=== PATIENT | female | born 1950 | race Caucasian/White ===

== ENCOUNTER 2019-08-06 12:16 | Inpatient (IN) | payer MEDICARE, OTHER ==
[2019-08-06 12:29] VITALS: BMI 26.3
[2019-08-06] MEDS ORDERED: Dextrose 5% in Water 1,000 ML IV PRN (12:50)
[2019-08-06] MEDS ORDERED: Dextrose 50% Abboject 50 ML SYRINGE IVP PRN (12:50)
[2019-08-06] MEDS ORDERED: ALPRAZolam 0.25 MG TAB PO PRN (12:51)
[2019-08-06] MEDS ORDERED: Acetaminophen 325 MG TAB PO PRN (12:52)
[2019-08-06] MEDS ORDERED: Mag-Al Plus 1200 MG/1200 MG/120 MG/30 ML UDCUP PO PRN ×2 (12:53→12:54)
[2019-08-06] MEDS ORDERED: hydrALAZINE 20 MG/ML VIAL SLOW IVP PRN (12:53)
[2019-08-06] MEDS: Insulin Regular 300 UNITS/3 ML VIAL SC PRN ×3 (13:16→20:59)
[2019-08-06 13:30] LABS: #Basophils 0.1 thou/uL (0.0-0.2); #Eosinphils 0.2 thou/uL (0.0-0.7); #Lymphocytes 1.4 thou/uL (1.20-3.40); #Neutrophils 5.8 thou/uL (1.40-6.50); %Basophils 0.7 % (0.0-1.0); %Eosinophils 2.1 % (0.0-10.0); %Lymphocytes 16.3 % (21.0-51.0); %Monocytes 11.9 % (0.0-10.0); Hemoglobin 14.6 g/dL (12.0-16.0); Mean Corpuscular HGB CONC 34.8 g/dL (32.0-36.0); Mean Corpuscular Hemoglobin 31.1 pg (27.0-31.0); Mean Corpuscular Volume 89.3 fL (78.0-98.0); Mean Platelet Volume 8.7 fL (7.4-10.4); Platelet Count 212 thou/uL (130-400); RBC Distribution Width 11.8 % (11.5-14.5); Red Blood Cell (RBC) Count 4.68 mill/uL (4.20-5.40); White Blood Cell (WBC) Count 8.5 thou/uL (4.8-10.8)
[2019-08-06 13:49] LABS: Anion Gap 13 mmol/L (10-20); BUN (Urea Nitrogen) 12 mg/dL (9.8-20.1); Calc. Creatinine Clearance 83 mL/min (70-130); Calcium 9.5 mg/dL (7.8-10.44); Carbon Dioxide 24 mmol/L (23-31); Chloride 103 mmol/L (98-107); Estimated GFR-MDRD 82; Glucose 145 mg/dL (80-115); Potassium 3.5 mmol/L (3.5-5.1); Sodium 136 mmol/L (136-145)
[2019-08-06] MEDS ORDERED: Atorvastatin Calcium 40 MG TAB PO SCH (21:00)
[2019-08-07] MEDS ORDERED: CEFAZOLIN 2 GM in Premix Bag 1 BAG IVPB SCH (05:00)
[2019-08-07] MEDS ORDERED: Albumin 5% 500 ML ONE (06:31)
[2019-08-07] MEDS ORDERED: Bupivacaine HCl 0.5%/Epinephrine 1:200,000/PF 30 ml Vial ONE (06:31)
[2019-08-07] MEDS ORDERED: Dexamethasone 4 mg/ml Vial ONE (06:31)
[2019-08-07] MEDS ORDERED: Heparin 10,000 UNITS/1 ML VIAL 30,000 UNITS in Sodium Chloride 0.9% 1,000 ML FS SCH (06:45)
[2019-08-07] MEDS ORDERED: Midazolam HCl 5 mg/5 ml Vial ONE (06:50)
[2019-08-07] MEDS ORDERED: Fentanyl 250 MCG/5 ML VIAL ONE ×2 (06:50)
[2019-08-07] MEDS ORDERED: Midazolam HCl 2 mg/2 ml Vial ONE (07:22)
[2019-08-07] MEDS ORDERED: Insulin Regular 300 UNITS/3 ML VIAL ONE (08:27)
[2019-08-07] MEDS ORDERED: Phenylephrine HCL 10 MG/ML VIAL ONE (08:51)
[2019-08-07] MEDS ORDERED: Magnesium 2 GM/50 ML 2 GM in Premix Bag 1 BAG IVPB SCH (10:34)
[2019-08-07] MEDS ORDERED: Morphine 2 MG/ML SYRINGE SLOW IVP PRN (10:34)
[2019-08-07] MEDS ORDERED: Bisacodyl 10 MG SUPP PR PRN (10:34)
[2019-08-07] MEDS ORDERED: Hetastarch 6% 500 ML 500 ML IVPB PRN (10:34)
[2019-08-07] MEDS ORDERED: Phenylephrine 10 MG/NS 250 ML 250 ML IVPB PRN (10:34)
[2019-08-07] MEDS ORDERED: Ondansetron PF 4 MG/2 ML Vial IVP PRN (10:34)
[2019-08-07] MEDS ORDERED: Mag-Al 1200 mg/1200 mg/30 ML UDCUP PO PRN (10:34)
[2019-08-07] MEDS ORDERED: Nitroglycerin 50 MG/250 ML BOT 250 ML IVPB PRN (10:34)
[2019-08-07] MEDS ORDERED: Bisacodyl 5 MG TAB PO PRN (10:34)
[2019-08-07] MEDS ORDERED: Guaifenesin DM 100-10/5 ML UDCUP PO PRN (10:34)
[2019-08-07] MEDS ORDERED: D5 1/2 NS w/20 mEq KCL 1,000 ML IV SCH (10:34)
[2019-08-07] MEDS ORDERED: hydrALAZINE 20 MG/ML VIAL SLOW IVP PRN (10:34)
[2019-08-07] MEDS ORDERED: Acetaminophen 325 MG TAB PO PRN (10:34)
[2019-08-07] MEDS ORDERED: Fentanyl 100 MCG/2 ML VIAL SLOW IVP PRN (10:34)
[2019-08-07 10:57] LABS: Actual Bicarbonate (HCO3a) 21.8 mEq/L (22-28); Base Excess (BEa) -3.2 mEq/L (-2.0 to +3.0); CO2 Tension 38.9 mmHg (35.0-45.0); Calcium, Ionized 1.11 mmol/L (1.12-1.30); Carboxyhemoglobin (COHb) 0.8 gm% (0.0-3.0); Hemoglobin (Hb) 11.6 g/dL (12.0-16.0); O2 Tension (PaO2) 81.3 mmHg (> 80.0); Potassium - ABG Lab 3.71 mmol/L (3.70-5.30); pH, Arterial 7.37 (7.35-7.45)
[2019-08-07 10:58] LABS: Puncture Site LINE
[2019-08-07 10:59] LABS: ALV-art Gradient 226.575 (0-20)
[2019-08-07] MEDS ORDERED: HUMULIN R 100 UNITS in Sodium Chloride 0.9% 100 ML IVPB SCH (11:08)
[2019-08-07] MEDS ORDERED: Dextrose 50% Abboject 50 ML SYRINGE SLOW IVP PRN (11:08)
[2019-08-07] MEDS ORDERED: Dextrose 5% in Water 1,000 ML IV PRN (11:08)
[2019-08-07 11:12] LABS: INR-International Normal Ratio 1.3; PTT 33.2 SEC (22.9-36.1); Prothrombin Time 15.7 SEC (12.0-14.7)
[2019-08-07] MEDS: Insulin Regular 300 UNITS/3 ML VIAL SC PRN (11:12)
[2019-08-07 11:14] LABS: #Basophils 0.1 thou/uL (0.0-0.2); #Eosinphils 0.2 thou/uL (0.0-0.7); #Lymphocytes 1.5 thou/uL (1.20-3.40); #Monocytes 1.1 thou/uL (0.11-0.59); %Basophils 0.4 % (0.0-1.0); %Eosinophils 1.5 % (0.0-10.0); %Lymphocytes 9.3 % (21.0-51.0); %Monocytes 7.2 % (0.0-10.0); %Neutrophils 81.6 % (42.0-75.0); Hemoglobin 11.3 g/dL (12.0-16.0); Mean Corpuscular HGB CONC 34.6 g/dL (32.0-36.0); Mean Corpuscular Volume 89.5 fL (78.0-98.0); Mean Platelet Volume 8.6 fL (7.4-10.4); Platelet Count 152 thou/uL (130-400); RBC Distribution Width 11.8 % (11.5-14.5); Red Blood Cell (RBC) Count 3.63 mill/uL (4.20-5.40); White Blood Cell (WBC) Count 15.9 thou/uL (4.8-10.8)
[2019-08-07] MEDS: Ketorolac Tromethamine 30 MG/ML VIAL IVP SCH ×3 (11:17→23:30)
[2019-08-07 11:42] LABS: Anion Gap 11 mmol/L (10-20); BUN (Urea Nitrogen) 13 mg/dL (9.8-20.1); Calc. Creatinine Clearance 92 mL/min (70-130); Calcium 7.8 mg/dL (7.8-10.44); Carbon Dioxide 23 mmol/L (23-31); Chloride 111 mmol/L (98-107); Estimated GFR-MDRD Greater than 90; Glucose 121 mg/dL (80-115); Potassium 3.8 mmol/L (3.5-5.1); Sodium 141 mmol/L (136-145)
--- NOTE | 2019-08-07 11:53 | RAD ---
FRONTAL VIEW CHEST: Date: 08/07/19 INDICATION: Status post open heart surgery. FINDINGS: There is an endotracheal tube with tip between thoracic inlet and steve. Right central vein catheter from a subclavian approach terminates at the atrial level. There are mediastinal drainage catheters overlying the central chest. No discrete pneumothorax. There is left basilar density obscuring portio ns of left hemidiaphragm. Linear densities are seen at the mid to lower lung zones, and there are per ihilar interstitial opacities. Cardiomediastinal silhouette is accentuated by technique and rotation. IMPRESSION: 1. Status post cardiac surgery. 2. Left basilar density may relate to atelectasis. Small volume pleural fluid not excluded. 3. Continued imaging follow-up may be obtained for further evaluation. POS: [facility]
[2019-08-07] MEDS: CEFAZOLIN 2 GM in Premix Bag 1 BAG IVPB SCH ×2 (13:36→21:18)
[2019-08-07] MEDS ORDERED: Sodium Bicarb 50 MEQ/50 ML VIAL ONE (13:56)
[2019-08-07] MEDS ORDERED: Cardioplegic Soln 1,000 ML BAG ONE (13:56)
[2019-08-07] MEDS ORDERED: Protamine Sulfate 250 MG/25 ML VIAL ONE (13:56)
[2019-08-07] MEDS ORDERED: Lidocaine 2% PF 100 mg/5 ml Syringe ONE (13:56)
[2019-08-07] MEDS ORDERED: Potassium Chloride 60 MEQ/30 ML VIAL ONE (13:56)
[2019-08-07] MEDS ORDERED: Heparin 5,000 UNITS/ML VIAL ONE (13:56)
[2019-08-07] MEDS ORDERED: Vecuronium 10 MG VIAL ONE (13:56)
[2019-08-07] MEDS ORDERED: Papaverine 60 MG/2 ML VIAL ONE (13:56)
[2019-08-07] MEDS ORDERED: Magnesium 5 GM/10 ML VIAL ONE (13:56)
[2019-08-07] MEDS ORDERED: Thrombin 5000 UNITS/5 ML VIAL ONE (13:56)
[2019-08-07] MEDS ORDERED: Mannitol 12.5 GM/50 ML ONE (13:56)
[2019-08-07] MEDS ORDERED: PROPOFOL 200 MG/20 ML VIAL ONE (13:56)
[2019-08-07] MEDS ORDERED: Calcium Chloride 1 GM/10 ML Abboject SYRINGE ONE (13:56)
[2019-08-07] MEDS ORDERED: Aminocaproic Acid 5 GM/20 ML VIAL ONE (13:56)
[2019-08-07] MEDS ORDERED: Heparin 30,000 units/30 ml VIAL ONE (13:56)
[2019-08-07 14:59] LABS: Actual Bicarbonate (HCO3a) 20.7 mEq/L (22-28); Base Excess (BEa) -4.2 mEq/L (-2.0 to +3.0); CO2 Tension 37.3 mmHg (35.0-45.0); Calcium, Ionized 1.07 mmol/L (1.12-1.30); Carboxyhemoglobin (COHb) 0.8 gm% (0.0-3.0); Hemoglobin (Hb) 12.4 g/dL (12.0-16.0); O2 Tension (PaO2) 72.9 mmHg (> 80.0); Potassium - ABG Lab 3.86 mmol/L (3.70-5.30); pH, Arterial 7.36 (7.35-7.45)
[2019-08-07 15:00] LABS: ALV-art Gradient 94.375 (0-20); Puncture Site LINE
[2019-08-07] MEDS: Fentanyl 100 MCG/2 ML VIAL SLOW IVP PRN ×2 (15:15→17:13)
--- NOTE | 2019-08-07 15:16 | OP ---
DATE OF PROCEDURE: 08/07/2019 PREOPERATIVE DIAGNOSES: Coronary artery disease/diabetes mellitus/hypertension/hyperlipidemia. POSTOPERATIVE DIAGNOSES: Coronary artery disease/diabetes mellitus/hypertension/hyperlipidemia. PROCEDURES PERFORMED: 1. Coronary artery bypass grafting x3. a. Left internal mammary artery, 1.5 mm distal left anterior descending artery - good conduit with diffusely diseased target. b. Reverse saphenous vein to 2.0 mm obtuse marginal - good conduit with diffusely diseased target. c. Reverse saphenous vein to 2.0 mm posterior descending artery - good conduit. ARMATURE TESTER SURGEON: Juan Pablo Smith MD ANESTHESIA: General endotracheal, Dr. Adi Baker. PUMP TIME: 52 minutes. CROSS-CLAMP TIME: 32 minutes. LOW CORE TEMPERATURE: 34 degrees Celsius. PIECE WORK INSPECTOR: Dennise Nation. DRAINS: 24-[place] chest tubes x2. DRIPS: None. TRANSFUSIONS: None. DESCRIPTION OF PROCEDURE: After operative consent was obtained, the patient was brought into the operating room, placed in supine position on the operating room table. Appropriate central line and monitors were placed and general endotracheal anesthesia was induced. Chest, abdomen, and legs were prepped and draped in usual sterile fashion. Greater saphenous vein was harvested from the left lower extremity utilizing an endoscopic technique. The wound was irrigated and closed in layers. Median sternotomy was performed. Left internal mammary artery was harvested as a pedicle graft. The patient was systemically heparinized. Distal pedicle was divided and infused with papaverine. Thymic fat and pericardium were divided with electrocautery. Pericardial stay sutures were placed. Aortic and atrial cannulation was performed. After adequate heparinization, retrograde prime was performed. The patient was placed on cardiopulmonary bypass. Distal targets were marked. Aortic cross-clamp was applied and antegrade sanguineous cardioplegic arrest was obtained. 1 L of antegrade cold [place] cardioplegia was given. Topical cold solution was used. Reverse saphenous vein was anastomosed to the PDA in end-to-side fashion with running 7-0 Prolene suture. Anastomosis was tested and it was hemostatic. Reverse saphenous vein was anastomosed to OM in end-to-side fashion with running 7-0 Prolene suture. Anastomosis was tested and it was hemostatic. Mammary artery was brought through a window in the pericardium and anastomosed to the mid LAD in an end-to-side fashion with running 7-0 Prolene suture. On release of mammary clamps, there was good hooding of the anastomosis and good distal flow. Pedicle was secured with interrupted 6-0 Prolene suture. Cross-clamp was removed and partial occluding clamp placed. Saphenous veins were anastomosed to individual punch sites with running 6-0 Prolene suture. Partial occluding clamp was removed and graft was deaired. Anastomoses were inspected for hemostasis, which was good. The patient was warmed and weaned from cardiopulmonary bypass. After resumption of sinus rhythm, good hemodynamics, temperature greater than 36.5, bypass was discontinued. Transfusion was given. Protamine was administered. Decannulation was performed and pursestring suture was secured. After adequate hemostasis had been obtained, 24-Libyan chest tube was sent to replace the mediastinum. The sternum was treated with vancomycin paste. The sternum was closed with #7 wire, and the sternum was treated platelet rich plasma and wires were twisted. The wound was irrigated and treated with platelet poor plasma and closed in multiple layers. Needle, sponge, and instrument counts were all reported as correct at the end of the procedure. The patient tolerated the procedure well, was transferred to the intensive care in stable, but critical condition. Job ID: [id number]
--- NOTE | 2019-08-07 15:25 | EKG ---
Test Reason : POST CABG Blood Pressure : / mmHG Vent. Rate : 083 BPM Atrial Rate : 083 BPM P-R Int : 196 ms QRS Dur : 136 ms QT Int : 460 ms P-R-T Axes : 056 058 -02 degrees QTc Int : 540 ms Normal sinus rhythm Right bundle branch block T wave abnormality, consider inferior ischemia Abnormal ECG No previous ECGs available Confirmed by DR. Long LAWS ([id number]) on 08/07/2019 3:24:34 PM Referred By: Ashanti AGUIRRE Confirmed By:DR. Long LAWS
[2019-08-07 16:52] LABS: Hemoglobin 12.2 g/dL (12.0-16.0)
[2019-08-07] MEDS: Potassium Chloride 20 MEQ/100 ML PREMIX BAG IVPB PRN ×2 (16:56→23:21)
[2019-08-07 17:41] LABS: Potassium 3.8 mmol/L (3.5-5.1)
--- NOTE | 2019-08-07 19:59 | CON ---
DATE OF CONSULTATION: HISTORY OF PRESENT ILLNESS: Sheila Desai is a 68-year-old white female who currently is post CABG and intubated. History was obtained from review of the chart. She was admitted with an increasing chest pain and shortness of breath to [facility]. She underwent cardiac catheterization, which revealed 3-vessel coronary artery disease and an ejection fraction of 60%. Catheterization was performed by Dr. Martinez. Today, she underwent CABG x3 with HEARD to the LAD, saphenous vein graft to the obtuse marginal and the posterior descending. PAST MEDICAL HISTORY: Hypertension, hyperlipidemia, and diabetes. PAST SURGICAL HISTORY: . MEDICATIONS: 1. Aspirin 81 daily. 2. Toprol 100 XL daily. 3. Benazepril 40 mg daily. 4. Lipitor 40 daily. 5. Glimepiride 4 mg daily. 6. Amlodipine 10 mg daily. ALLERGIES: LASIX, UNKNOWN REACTION. SOCIAL HISTORY: She does not smoke. She occasionally smokes marijuana. She occasionally drinks. REVIEW OF SYSTEMS: Unobtainable with the patient being sedated and intubated. PHYSICAL EXAMINATION: VITAL SIGNS: Blood pressure 104/54, pulse of 73. HEENT: PERRL. NECK: Supple. CHEST: Clear. CARDIAC: S1 and S2 normal without any S3, S4, or murmurs. Carotid upstrokes normal without bruits. ABDOMEN: Normal bowel sounds without tenderness. EXTREMITIES: Revealed no clubbing, cyanosis, or edema. NEUROLOGIC: The patient is lethargic, but will open her eyes to her name and shake her head. SKIN: Warm and dry. LABORATORY DATA: Postoperative EKG reveals normal sinus rhythm with right bundle-branch block, nonspecific T-wave changes. Hemoglobin 11.3, hematocrit 32.5, white count 15,900, platelets 152,000. INR 1.3. PH 7.37, pCO2 of 38.9, PO2 of 81.3. Sodium 141, potassium 3.8, chloride 111, carbon dioxide 23, BUN 13, creatinine 0.64. IMPRESSION: 1. Status post coronary artery bypass grafting, hemodynamically stable at this time. 2. Hypertension. 3. Hyperlipidemia. 4. Diabetes. PLAN: The patient is currently being weaned from the ventilator. We will continue to follow with you. Job ID: [id number]
[2019-08-07] MEDS ORDERED: Atorvastatin Calcium 20 MG TAB PO SCH (21:00)
[2019-08-07] MEDS ORDERED: Famotidine/PF 20 mg/2ml Vial SLOW IVP SCH (21:00)
[2019-08-07] MEDS: HYDROcodone/Acetaminophen 5/325 mg Tablet PO PRN (21:17)
[2019-08-07 21:37] LABS: Potassium 3.8 mmol/L (3.5-5.1)
[2019-08-08] MEDS: HYDROcodone/Acetaminophen 5/325 mg Tablet PO PRN ×6 (01:16→23:54)
[2019-08-08] MEDS: Fentanyl 100 MCG/2 ML VIAL SLOW IVP PRN ×2 (01:28→16:12)
[2019-08-08 04:37] LABS: #Lymphocytes 1.3 thou/uL (1.20-3.40); #Monocytes 1.3 thou/uL (0.11-0.59); #Neutrophils 10.3 thou/uL (1.40-6.50); %Basophils 0.2 % (0.0-1.0); %Eosinophils 0.3 % (0.0-10.0); %Lymphocytes 9.8 % (21.0-51.0); %Monocytes 10.1 % (0.0-10.0); %Neutrophils 79.6 % (42.0-75.0); Hemoglobin 11.5 g/dL (12.0-16.0); Mean Corpuscular HGB CONC 34.2 g/dL (32.0-36.0); Mean Corpuscular Volume 90.5 fL (78.0-98.0); Platelet Count 143 thou/uL (130-400); Red Blood Cell (RBC) Count 3.72 mill/uL (4.20-5.40); White Blood Cell (WBC) Count 12.9 thou/uL (4.8-10.8)
[2019-08-08 04:58] LABS: Anion Gap 10 mmol/L (10-20); BUN (Urea Nitrogen) 10 mg/dL (9.8-20.1); Calc. Creatinine Clearance 97 mL/min (70-130); Calcium 8.7 mg/dL (7.8-10.44); Carbon Dioxide 24 mmol/L (23-31); Chloride 108 mmol/L (98-107); Estimated GFR-MDRD Greater than 90; Glucose 111 mg/dL (80-115); Potassium 4.1 mmol/L (3.5-5.1); Sodium 138 mmol/L (136-145)
[2019-08-08] MEDS: CEFAZOLIN 2 GM in Premix Bag 1 BAG IVPB SCH (06:13)
[2019-08-08] MEDS: Ketorolac Tromethamine 30 MG/ML VIAL IVP SCH ×4 (06:13→23:54)
[2019-08-08] MEDS: Atorvastatin Calcium 40 MG TAB PO SCH (08:19)
[2019-08-08] MEDS: Glimepiride 4 MG TAB PO SCH ×2 (08:20→16:15)
[2019-08-08] MEDS: Magnesium 2 GM/50 ML 2 GM in Premix Bag 1 BAG IVPB SCH (08:21)
--- NOTE | 2019-08-08 08:33 | RAD ---
SINGLE VIEW CHEST: Date: 08/08/19 COMPARISON: 08/07/19. HISTORY: Status post open heart surgery. FINDINGS: Single view of the chest shows an enlarged cardiomediastinal silhouette. The patient is status post s ternotomy. The endotracheal tube has been removed. The mediastinal drains and central venous catheter are unchanged in position. Atelectasis is seen in the mid left lung. IMPRESSION: Stable exam status post extubation. POS: [facility]
[2019-08-08] MEDS ORDERED: Aspirin 325 MG TAB PO SCH (09:00)
[2019-08-08] MEDS: Insulin Regular 300 UNITS/3 ML VIAL SC PRN ×3 (11:06→21:02)
[2019-08-08] MEDS ORDERED: Mag-Al 1200 mg/1200 mg/30 ML UDCUP PO PRN (12:38)
[2019-08-08] MEDS ORDERED: Zolpidem Tartrate 5 MG TAB PO PRN (12:38)
[2019-08-08] MEDS ORDERED: Nitroglycerin 0.4 MG TAB (25 Tab Bottle) SL PRN (12:38)
[2019-08-08] MEDS ORDERED: diphenhydrAMINE 25 MG CAP PO PRN (12:38)
[2019-08-08] MEDS ORDERED: Mineral Oil ENEMA PR PRN (12:38)
[2019-08-08] MEDS ORDERED: Bisacodyl 10 MG SUPP PR PRN (12:38)
[2019-08-08] MEDS ORDERED: Artificial Tears 18 DROP/0.9 ML EA EYE PRN (12:38)
[2019-08-08] MEDS ORDERED: Guaifenesin DM 100-10/5 ML UDCUP PO PRN (12:38)
[2019-08-08] MEDS ORDERED: Milk Of Magnesia 30 ML UDCUP PO PRN (12:38)
[2019-08-08] MEDS ORDERED: Warfarin Sodium 1 MG TAB PO SCH (17:00)
[2019-08-09] MEDS: Ketorolac Tromethamine 30 MG/ML VIAL IVP SCH ×3 (05:31→17:35)
[2019-08-09] MEDS: HYDROcodone/Acetaminophen 5/325 mg Tablet PO PRN ×3 (05:37→17:33)
[2019-08-09] MEDS: Glimepiride 4 MG TAB PO SCH ×2 (08:18→17:30)
[2019-08-09] MEDS: Amlodipine 10 MG TAB PO SCH (08:19)
[2019-08-09] MEDS: Aspirin 325 mg Enteric Coated Tablet PO SCH (08:19)
[2019-08-09] MEDS: Atorvastatin Calcium 40 MG TAB PO SCH (08:19)
[2019-08-09] MEDS: Magnesium 2 GM/50 ML 2 GM in Premix Bag 1 BAG IVPB SCH (08:22)
[2019-08-09] MEDS: Bisacodyl 5 MG TAB PO PRN (08:33)
[2019-08-09] MEDS: Insulin Regular 300 UNITS/3 ML VIAL SC PRN ×2 (11:42→17:40)
[2019-08-10] MEDS: Bisacodyl 5 MG TAB PO PRN (00:01)
[2019-08-10] MEDS: Ketorolac Tromethamine 30 MG/ML VIAL IVP SCH ×3 (05:19→11:50)
[2019-08-10] MEDS: Glimepiride 4 MG TAB PO SCH ×2 (07:17→16:18)
[2019-08-10] MEDS: Amlodipine 10 MG TAB PO SCH (08:34)
[2019-08-10] MEDS: Atorvastatin Calcium 40 MG TAB PO SCH (08:35)
[2019-08-10] MEDS: Aspirin 325 mg Enteric Coated Tablet PO SCH (08:35)
[2019-08-10] MEDS: Insulin Regular 300 UNITS/3 ML VIAL SC PRN (11:50)
[2019-08-10 13:17] VITALS: BP 150/73; TEMP 97.9
[2019-08-10] MEDS: HYDROcodone/Acetaminophen 5/325 mg Tablet PO PRN (17:09)
--- NOTE | 2019-08-11 03:32 | DIS ---
DATE OF ADMISSION: 08/06/2019 DATE OF DISCHARGE: 08/10/2019 DIAGNOSES: 1. Coronary artery disease. 2. Diabetes mellitus. 3. Dyslipidemia. 4. Hypertension. PROCEDURES: Coronary artery bypass grafting x3. 1. Left internal mammary artery to LAD. 2. Reverse saphenous vein to OM. 3. Reverse saphenous vein to PDA. DESCRIPTION OF HOSPITAL STAY: Ms. Desai was brought from the [facility] to [place] for coronary artery bypass grafting. She has done well postoperatively with no rhythm disturbances. She is being discharged to home in good condition. She will follow up with me in [address] Martinez in a month. DISCHARGE MEDICATIONS: Include; 1. Norvasc 10 mg daily. 2. Metoprolol succinate 100 mg daily. 3. Lipitor 40 mg daily. 4. Lasix 20 mg daily. 5. Glimepiride 4 mg b.i.d. 6. Aspirin 325 mg daily. 7. [place] 5/325 one to two q.6 hours p.r.n. pain. Job ID: [id number]
== END 2019-08-10 17:27 | disposition home or self-care (01) | DRG 236 ==
LOC: CCU 12:16 → 2NO 08-09 00:57
PROVIDERS: ADMIT Thoracic Surgery (Cardiothoracic Vascular Surgery); ATTEND Thoracic Surgery (Cardiothoracic Vascular Surgery)
PROC: 02100Z9 Bypass Coronary Artery, One Artery from Left Internal Mammary, Open Approach (ICD-10-PCS; principal; 2019-08-07)
PROC: 021109W Bypass Coronary Artery, Two Arteries from Aorta with Autologous Venous Tissue, Open Approach (ICD-10-PCS; 2019-08-07)
PROC: 06BQ0ZZ Excision of Left Saphenous Vein, Open Approach (ICD-10-PCS; 2019-08-07)
PROC: 5A1221Z Performance of Cardiac Output, Continuous (ICD-10-PCS; 2019-08-07)
DX: I25.10 Atherosclerotic heart disease of native coronary artery without angina pectoris (principal); E11.9 Type 2 diabetes mellitus without complications; I10 Essential (primary) hypertension; E78.5 Hyperlipidemia, unspecified; Z91.040 Latex allergy status; Z88.8 Allergy status to other drugs, medicaments and biological substances
CPT/HCPCS: 36415; 36416; 36430; 71045; 80048; 82805; 82947; 84132; 85014; 85018; 85025; 85610; 85730; 86850; 86900; 86901; 93005; 93010; 93798; 94002; J0670; J0690; J1100; J1642; J1644; J1815; J1885; J2001; J2150; J2250; J2270; J2370; J2405; J2440; J2704; J2720; J3010; J3370; J3475; J3480; J3490; J7050; P9045; S0017; S0028

== ENCOUNTER 2020-01-15 10:12 | Emergency (ER) | payer MEDICARE, OTHER ==
--- NOTE | 2020-01-15 10:46 | CT ---
Exam: Head CT without contrast HISTORY: Blurred vision x1 month ago. Hypertension. Altered mental status. COMPARISON: none FINDINGS: Hemorrhage: No intraparenchymal hemorrhage or extra-axial hematoma. Brain parenchyma: Cortical barba-white matter differentiation is preserved. No mass effect or midline shift. Basilar cisterns are patent. Ventricular system: Ventricles and sulci are patent and symmetric. Calvarium: Intact. Sinuses and mastoid air cells: Adequate aeration. IMPRESSION: No acute intracranial process.
--- NOTE | 2020-01-15 10:52 | RAD ---
Exam: Chest one view HISTORY:Chest pain Comparison: 08/08/2019 FINDINGS: Cardiac silhouette:There is cardiomegaly. Stable sternotomy wires. Aorta: Atherosclerosis of the aortic knob. Elongation of the descending thoracic aorta. Pulmonary vessels: Normal Costophrenic angles: Clear LUNGS: No masses or consolidation. There is scarring in the left midlung. Pneumothorax: None Osseous abnormalities: None IMPRESSION: No acute cardiopulmonary process. Atherosclerosis.
[2020-01-15 10:59] LABS: #Basophils 0.1 thou/uL (0.0-0.2); #Eosinphils 0.2 thou/uL (0.0-0.7); #Lymphocytes 1.2 thou/uL (1.20-3.40); #Monocytes 0.6 thou/uL (0.11-0.59); #Neutrophils 4.2 thou/uL (1.40-6.50); %Basophils 1.4 % (0.0-1.0); %Lymphocytes 18.7 % (21.0-51.0); %Neutrophils 66.9 % (42.0-75.0); Hemoglobin 14.6 g/dL (12.0-16.0); Mean Corpuscular HGB CONC 33.8 g/dL (32.0-36.0); Mean Corpuscular Hemoglobin 29.8 pg (27.0-31.0); Mean Corpuscular Volume 88.1 fL (78.0-98.0); Platelet Count 203 thou/uL (130-400); White Blood Cell (WBC) Count 6.3 thou/uL (4.8-10.8)
[2020-01-15] MEDS ORDERED: Diltiazem 125 MG/25 ML ONE (11:08)
[2020-01-15 11:23] LABS: ALT (SGPT) 23 U/L (8-55); AST (SGOT) 19 U/L (5-34); Albumin 4.4 g/dL (3.4-4.8); Alkaline Phosphatase 115 U/L (40-110); Anion Gap 12 mmol/L (10-20); BUN (Urea Nitrogen) 14 mg/dL (9.8-20.1); Bilirubin, Total 0.5 mg/dL (0.2-1.2); CK (CPK) 80 U/L (29-168); Calc. Creatinine Clearance 0 mL/min (70-130); Calcium 9.2 mg/dL (7.8-10.44); Carbon Dioxide 27 mmol/L (23-31); Chloride 104 mmol/L (98-107); Estimated GFR-MDRD 73; Globulin 3.2 g/dL (2.4-3.5); Glucose 198 mg/dL (80-115); Lipase 16 U/L (8-78); Potassium 3.9 mmol/L (3.5-5.1); Protein, Total 7.6 g/dL (6.0-8.3); Sodium 139 mmol/L (136-145)
[2020-01-15 11:30] LABS: Bilirubin Negative (Negative); Blood, Urine Negative (Negative); Clarity Clear (Clear); Glucose, Urine (Dipstick) 300 mg/dL (Negative); Leukocyte 75 Leu/uL (Negative); Nitrite Negative (Negative); Protein, Urine (Dipstick) 10 mg/dL (Neg-Trace); RBC/HPF 0-3 HPF (0-3); Squamous Epithelial 0-3 HPF (0-3); Urobilinogen Normal mg/dL (Less than 2); WBC/HPF 0-3 HPF (0-3)
[2020-01-15 11:31] LABS: Bacteria/HPF 1+ HPF (None Seen)
== END 2020-01-15 12:15 | disposition home or self-care (01) ==
LOC: ERS 10:12
DX: I16.0 Hypertensive urgency (principal); I10 Essential (primary) hypertension; E78.00 Pure hypercholesterolemia, unspecified; E11.9 Type 2 diabetes mellitus without complications; Z79.899 Other long term (current) drug therapy; Z79.82 Long term (current) use of aspirin
CPT/HCPCS: 36415; 70450; 71045; 80053; 81003; 81015; 82550; 83690; 83880; 84484; 85025; 87086; 93005; 96361; 96374

== ENCOUNTER 2022-07-18 00:19 | Inpatient (IN) | payer MEDICARE ==
[2022-07-18] MEDS ORDERED: Aspirin Chewable 81 MG TAB ONE (01:16)
[2022-07-18] MEDS ORDERED: cloNIDine 0.1 MG TAB ONE (01:16)
[2022-07-18] MEDS ORDERED: Cefepime 2 GM VIAL ONE (01:17)
[2022-07-18 01:19] LABS: Hemoglobin 14.8 g/dL (12.0-16.0); Mean Corpuscular HGB CONC 33.5 g/dL (32.0-36.0); Mean Corpuscular Hemoglobin 30.9 pg (27.0-31.0); Mean Corpuscular Volume 92.4 fL (78.0-98.0); Mean Platelet Volume 9.8 fL (7.4-10.4); Platelet Count 191 thou/uL (130-400); RBC Distribution Width 12.3 % (11.5-14.5); Red Blood Cell (RBC) Count 4.79 mill/uL (4.20-5.40); White Blood Cell (WBC) Count 12.1 thou/uL (4.8-10.8)
[2022-07-18 01:38] LABS: ALT (SGPT) 15 U/L (8-55); AST (SGOT) 30 U/L (5-34); Albumin 3.4 g/dL (3.4-4.8); Alkaline Phosphatase 89 U/L (40-110); Anion Gap 23 mmol/L (10-20); BUN (Urea Nitrogen) 48 mg/dL (9.8-20.1); Bilirubin, Total 0.8 mg/dL (0.2-1.2); Calc. Creatinine Clearance 0 mL/min (70-130); Calcium 9.5 mg/dL (7.8-10.44); Carbon Dioxide 18 mmol/L (23-31); Chloride 91 mmol/L (98-107); Estimated GFR 16; Globulin 3.7 g/dL (2.4-3.5); Glucose 313 mg/dL (80-115); Lipase 5 U/L (8-78); Magnesium 1.8 mg/dL (1.6-2.6); Potassium 3.4 mmol/L (3.5-5.1); Protein, Total 7.1 g/dL (5.8-8.1); Sodium 129 mmol/L (136-145)
[2022-07-18] MEDS ORDERED: Piperacillin/Tazobactam 3.375 GM VIAL ONE (01:40)
[2022-07-18 01:45] LABS: Band 25 % (5-11); Lymphocytes 3 % (21-51); MDiff Complete? YES; Metamyelocyte 14 % (0-0); Monocytes 5 % (0-10); Myelocyte 11 % (0-0); Neutrophil 42 % (42-75); Platelet Morphology Comment Appears Adequate; RBC Morphology Normal
[2022-07-18] MEDS ORDERED: Vancomycin 1 GM/200 ML BAG ONE (03:21)
[2022-07-18] MEDS ORDERED: Heparin 25,000 units/D5W 500 ML ONE (03:43)
[2022-07-18] MEDS ORDERED: Heparin 10,000 UNITS/ 10 ML VIAL ONE ×2 (03:43→03:50)
[2022-07-18 03:46] LABS: INR-International Normal Ratio 1.5; PTT 49.7 sec (22.9-36.1)
[2022-07-18 04:06] LABS: Actual Bicarbonate (HCO3a) 15.8 mEq/L (22-28); Analyzer IN Cardio ER; Base Excess (BEa) -10.6 mEq/L (-2.0 to +3.0); CO2 Tension 36.5 mmHg (35.0-45.0); Calcium, Ionized (arterial) 1.08 mmol/L (1.12-1.30); Carboxyhemoglobin (COHb) 0.3 gm% (0.0-3.0); Hemoglobin (Hb) 13.7 g/dL (12.0-16.0); Potassium - ABG Lab 3.61 mmol/L (3.70-5.30)
[2022-07-18 04:07] LABS: ALV-art Gradient 109.535 mmHg (0-20); Puncture Site RRA; pH, Arterial 7.25 (7.35-7.45)
[2022-07-18] MEDS ORDERED: Acetaminophen 325 MG TAB PO PRN (04:15)
[2022-07-18] MEDS ORDERED: Ondansetron PF 4 MG/2 ML Vial IVP PRN (04:15)
[2022-07-18] MEDS ORDERED: Heparin 10,000 UNITS/ 10 ML VIAL SLOW IVP SCH (04:15)
[2022-07-18] MEDS ORDERED: Ondansetron ODT 4 MG TAB SL PRN (04:15)
[2022-07-18] MEDS ORDERED: Heparin 25,000 units/D5W 500 ML IV SCH (04:15)
[2022-07-18] MEDS ORDERED: Dextrose 50% Abboject 50 ML SYRINGE SLOW IVP PRN (04:29)
[2022-07-18] MEDS ORDERED: Acetaminophen 650 MG Suppository PR PRN (04:29)
[2022-07-18] MEDS ORDERED: Dextrose 5% in Water 1,000 ML IV PRN (04:29)
[2022-07-18 04:59] LABS: Troponin I 0.012 ng/mL (< 0.028)
[2022-07-18 05:44] LABS: SARS-CoV-2 NAA Rapid Test Not Detected (NotDetected)
[2022-07-18 06:52] LABS: Bilirubin Negative (Negative); Blood, Urine 3+ (Negative); Clarity Extra Turbid (Clear); Glucose, Urine (Dipstick) 50 mg/dL (Negative); Ketone, Urine Trace mg/dL (Negative); Leukocyte 500 Leu/uL (Negative); Nitrite Negative (Negative); Protein, Urine (Dipstick) 100 mg/dL (Neg-Trace); Specific Gravity, Urine 1.026 (1.002-1.036); Transitional Epithelial 0-3 HPF (None Seen); Urobilinogen Normal mg/dL (Less than 2); WBC/HPF Greater than 50 HPF (0-3); pH, Urine 5.5 (5.0-9.0)
[2022-07-18 06:53] LABS: Bacteria/HPF 1+ HPF (None Seen)
[2022-07-18 06:54] LABS: Urine Culture Reflex No No
[2022-07-18 07:58] LABS: Anion Gap 21 mmol/L (10-20); BUN (Urea Nitrogen) 47 mg/dL (9.8-20.1); Calc. Creatinine Clearance 22 mL/min (70-130); Calcium 8.1 mg/dL (7.8-10.44); Carbon Dioxide 14 mmol/L (23-31); Chloride 100 mmol/L (98-107); Estimated GFR 19; Glucose 270 mg/dL (80-115); Magnesium 1.7 mg/dL (1.6-2.6); Potassium 3.7 mmol/L (3.5-5.1); Sodium 131 mmol/L (136-145)
[2022-07-18 08:09] LABS: Band 32 % (5-11); Eosinophils 2 % (0-10); Lymphocytes 3 % (21-51); MDiff Complete? YES; Mean Corpuscular HGB CONC 32.7 g/dL (32.0-36.0); Mean Corpuscular Hemoglobin 30.4 pg (27.0-31.0); Mean Platelet Volume 9.7 fL (7.4-10.4); Metamyelocyte 8 % (0-0); Monocytes 2 % (0-10); Myelocyte 13 % (0-0); Neutrophil 40 % (42-75); Platelet Count 149 thou/uL (130-400); RBC Distribution Width 12.2 % (11.5-14.5); Red Blood Cell (RBC) Count 4.58 mill/uL (4.20-5.40); Toxic Granulation SLIGHT; White Blood Cell (WBC) Count 4.5 thou/uL (4.8-10.8)
[2022-07-18 08:23] LABS: Lactic Acid 3.6 mmol/L (0.5-2.2)
[2022-07-18 08:31] LABS: Troponin I 0.015 ng/mL (< 0.028)
[2022-07-18] MEDS ORDERED: Meropenem 1 GM in Sodium Chloride 0.9% 100 ML IVPB SCH (09:00)
[2022-07-18] MEDS ORDERED: Sodium Chloride 0.9% 1,000 ML IV SCH (09:00)
[2022-07-18] MEDS: NOREPINEPHRINE 8 MG/250 ML-D5W 250 ML IVPB SCH ×2 (09:49→18:08)
[2022-07-18] MEDS ORDERED: Pantoprazole 40 MG VIAL IVP SCH (10:15)
[2022-07-18 11:31] LABS: PTT 183.9 sec (22.9-36.1)
[2022-07-18] MEDS: Lactated Ringer's 1,000 ML IV SCH (12:30)
[2022-07-18] MEDS ORDERED: Lactated Ringer's 1,000 ML IV SCH (12:30)
[2022-07-18] MEDS ORDERED: Vancomycin 1 GM in Sodium Chloride 0.9% 100 ML IVPB SCH (12:45)
[2022-07-18] MEDS ORDERED: VANCOMYCIN 1.25 GM/250 ML BAG 1.25 GM in Premix Bag 1 BAG IVPB SCH (13:00)
[2022-07-18 13:56] LABS: Actual Bicarbonate (HCO3v) 16 mEq/L (22-28); Calcium, Ionized (venous) 1.01 mmol/L (1.16-1.32); Chloride (VBG) 99 mmol/L (98-106); Potassium (VBG) 3.66 mmol/L (3.70-5.30); Sodium 126.3 mmol/L (133-146)
[2022-07-18] MEDS: Hydrocortisone Sod Succ/PF 100 mg/2 ml Vial IVP SCH ×2 (14:44→19:38)
[2022-07-18] MEDS: traMADol HCl 50 MG TAB PO PRN (16:20)
[2022-07-18 16:39] LABS: Anion Gap 19 mmol/L (10-20); BUN (Urea Nitrogen) 54 mg/dL (9.8-20.1); Calc. Creatinine Clearance 22 mL/min (70-130); Calcium 7.4 mg/dL (7.8-10.44); Carbon Dioxide 13 mmol/L (23-31); Chloride 100 mmol/L (98-107); Estimated GFR 19; Glucose 259 mg/dL (80-115); Potassium 3.9 mmol/L (3.5-5.1); Sodium 128 mmol/L (136-145)
[2022-07-18] MEDS: HumaLOG 300 UNITS/3 ML VIAL SC PRN ×2 (17:01→22:11)
[2022-07-18] MEDS: Meropenem 500 MG in Sodium Chloride 0.9% 100 ML IVPB SCH (17:11)
[2022-07-18] MEDS: Morphine 2 MG/ML VIAL SLOW IVP PRN ×2 (17:18→22:10)
[2022-07-18] MEDS ORDERED: Magnesium 2 GM/50 ML(in water) 2 GM in Premix Bag 1 BAG IVPB SCH (17:30)
[2022-07-18 18:42] LABS: Lactic Acid 2.4 mmol/L (0.5-2.2)
[2022-07-18] MEDS ORDERED: Sodium Bicarb 50 MEQ/50 ML VIAL IVP SCH (19:15)
[2022-07-18] MEDS ORDERED: Sodium Bicarb 50 MEQ/50 ML Abboject 8.4% SYRINGE IVP SCH (19:30)
[2022-07-19] MEDS: Lactated Ringer's 1,000 ML IV SCH ×3 (01:48→12:50)
[2022-07-19] MEDS: Hydrocortisone Sod Succ/PF 100 mg/2 ml Vial IVP SCH ×4 (01:49→19:36)
[2022-07-19] MEDS: Meropenem 500 MG in Sodium Chloride 0.9% 100 ML IVPB SCH ×2 (04:15→16:36)
[2022-07-19] MEDS: NOREPINEPHRINE 8 MG/250 ML-D5W 250 ML IVPB SCH (04:16)
[2022-07-19 05:27] LABS: Lactic Acid 2.1 mmol/L (0.5-2.2)
[2022-07-19 05:45] LABS: CK (CPK) 2073 U/L (29-168); Phosphorus 4.9 mg/dL (2.3-4.7)
[2022-07-19] MEDS: HumaLOG 300 UNITS/3 ML VIAL SC PRN ×4 (05:51→21:35)
[2022-07-19 05:53] LABS: ALT (SGPT) 73 U/L (8-55); AST (SGOT) 122 U/L (5-34); Alkaline Phosphatase 80 U/L (40-110); Anion Gap 19 mmol/L (10-20); BUN (Urea Nitrogen) 59 mg/dL (9.8-20.1); Bilirubin, Total 1.6 mg/dL (0.2-1.2); Calc. Creatinine Clearance 22 mL/min (70-130); Calcium 7.2 mg/dL (7.8-10.44); Carbon Dioxide 16 mmol/L (23-31); Chloride 100 mmol/L (98-107); Estimated GFR 19; Globulin 2.7 g/dL (2.4-3.5); Glucose 224 mg/dL (80-115); Magnesium 2.2 mg/dL (1.6-2.6); Potassium 3.8 mmol/L (3.5-5.1); Protein, Total 4.7 g/dL (5.8-8.1); Sodium 131 mmol/L (136-145)
[2022-07-19 06:05] LABS: Band 12 % (5-11); Eosinophils 1 % (0-10); Hemoglobin 11.6 g/dL (12.0-16.0); Hypochromia SLIGHT = 6-15 cells (100X) (0-5/hpf); Lymphocytes 15 % (21-51); MDiff Complete? YES; Mean Corpuscular HGB CONC 33.3 g/dL (32.0-36.0); Mean Corpuscular Hemoglobin 30.6 pg (27.0-31.0); Mean Corpuscular Volume 91.8 fL (78.0-98.0); Mean Platelet Volume 10.6 fL (7.4-10.4); Monocytes 10 % (0-10); Neutrophil 62 % (42-75); Platelet Count 89 thou/uL (130-400); Platelet Morphology Comment Appears Decreased; RBC Distribution Width 12.1 % (11.5-14.5); Red Blood Cell (RBC) Count 3.78 mill/uL (4.20-5.40); White Blood Cell (WBC) Count 6.6 thou/uL (4.8-10.8)
[2022-07-19] MEDS: Pantoprazole 40 MG VIAL IVP SCH (08:48)
[2022-07-19] MEDS ORDERED: Lactated Ringer's 500 ML IV SCH (13:00)
[2022-07-19 13:11] LABS: Actual Bicarbonate (HCO3a) 18.5 mEq/L (22-28); Base Excess (BEa) -5.3 mEq/L (-2.0 to +3.0); CO2 Tension 31.5 mmHg (35.0-45.0); Calcium, Ionized (arterial) 1.01 mmol/L (1.12-1.30); Potassium - ABG Lab 3.58 mmol/L (3.70-5.30); pH, Arterial 7.39 (7.35-7.45)
[2022-07-19 13:12] LABS: O2 Tension (PaO2), arterial 55.4 mmHg (> 80.0); Puncture Site Arterial Line
[2022-07-19 13:18] LABS: Vancomycin, Random 13.3 ug/mL (See Comment)
[2022-07-19] MEDS ORDERED: Vancomycin HCl 750 MG in Sodium Chloride 0.9% 250 ML 250 ML IVPB SCH (15:00)
[2022-07-19] MEDS ORDERED: Heparin 5,000 UNITS/ML VIAL SC SCH (21:00)
[2022-07-19] MEDS: Insulin Glargine 30 UNITS/0.3 ML VIAL SC SCH (21:34)
[2022-07-20] MEDS: Morphine 2 MG/ML VIAL SLOW IVP PRN (00:30)
[2022-07-20] MEDS: Hydrocortisone Sod Succ/PF 100 mg/2 ml Vial IVP SCH ×4 (01:39→20:57)
[2022-07-20 04:38] LABS: ALT (SGPT) 67 U/L (8-55); AST (SGOT) 88 U/L (5-34); Albumin 2.1 g/dL (3.4-4.8); Alkaline Phosphatase 128 U/L (40-110); Anion Gap 18 mmol/L (10-20); BUN (Urea Nitrogen) 63 mg/dL (9.8-20.1); Bilirubin, Total 2.1 mg/dL (0.2-1.2); CK (CPK) 2019 U/L (29-168); Calc. Creatinine Clearance 26 mL/min (70-130); Calcium 7.5 mg/dL (7.8-10.44); Carbon Dioxide 16 mmol/L (23-31); Chloride 104 mmol/L (98-107); Estimated GFR 23; Globulin 2.6 g/dL (2.4-3.5); Glucose 166 mg/dL (80-115); Potassium 3.7 mmol/L (3.5-5.1); Protein, Total 4.7 g/dL (5.8-8.1); Sodium 134 mmol/L (136-145)
[2022-07-20 04:52] LABS: Band 34 % (5-11); Eosinophils 2 % (0-10); Hemoglobin 11.3 g/dL (12.0-16.0); Lymphocytes 3 % (21-51); MDiff Complete? YES; Mean Corpuscular HGB CONC 33.6 g/dL (32.0-36.0); Mean Corpuscular Hemoglobin 31.3 pg (27.0-31.0); Mean Corpuscular Volume 93.2 fL (78.0-98.0); Mean Platelet Volume 10.2 fL (7.4-10.4); Metamyelocyte 9 % (0-0); Monocytes 4 % (0-10); Neutrophil 48 % (42-75); Nucleated RBC 2 % (0); Platelet Count 57 thou/uL (130-400); Platelet Morphology Comment Appears Decreased; RBC Distribution Width 12.2 % (11.5-14.5); RBC Morphology Normal; White Blood Cell (WBC) Count 11.2 thou/uL (4.8-10.8)
[2022-07-20] MEDS: Lactated Ringer's 1,000 ML IV SCH (05:21)
[2022-07-20] MEDS: Meropenem 500 MG in Sodium Chloride 0.9% 100 ML IVPB SCH (05:34)
[2022-07-20] MEDS ORDERED: cefTRIAXone\\ROCEPHIN 2 GM in Sodium Chloride 0.9% 100 ML IVPB SCH (08:00)
[2022-07-20] MEDS: Pantoprazole 40 MG VIAL IVP SCH (09:07)
[2022-07-20] MEDS: Furosemide 40 MG/4 ML VIAL SLOW IVP SCH (09:18)
[2022-07-20] MEDS: HumaLOG 300 UNITS/3 ML VIAL SC PRN (17:04)
[2022-07-20] MEDS: Insulin Glargine 30 UNITS/0.3 ML VIAL SC SCH (20:57)
[2022-07-20] MEDS: Clindamycin/D5W 900 MG in Premix Bag 1 BAG IVPB SCH (21:31)
[2022-07-20] MEDS: NOREPINEPHRINE 8 MG/250 ML-D5W 250 ML IVPB SCH (22:00)
[2022-07-20 22:29] LABS: Actual Bicarbonate (HCO3a) 15.3 mEq/L (22-28); Analyzer IN Cardio ER; Base Excess (BEa) -8.1 mEq/L (-2.0 to +3.0); Calcium, Ionized (arterial) 1.07 mmol/L (1.12-1.30); Carboxyhemoglobin (COHb) 0.3 gm% (0.0-3.0); Hemoglobin (Hb) 11.6 g/dL (12.0-16.0); O2 Tension (PaO2), arterial 60.7 mmHg (> 80.0); Potassium - ABG Lab 3.52 mmol/L (3.70-5.30)
[2022-07-20 22:33] LABS: ALV-art Gradient 299.575 mmHg (0-20); CO2 Tension 25.5 mmHg (35.0-45.0); Puncture Site Arterial Line
[2022-07-20 22:46] LABS: Hemoglobin 10.9 g/dL (12.0-16.0); Mean Corpuscular HGB CONC 33.2 g/dL (32.0-36.0); Mean Corpuscular Hemoglobin 30.9 pg (27.0-31.0); Mean Platelet Volume 10.6 fL (7.4-10.4); Platelet Count 49 thou/uL (130-400); RBC Distribution Width 12.5 % (11.5-14.5); Red Blood Cell (RBC) Count 3.53 mill/uL (4.20-5.40); White Blood Cell (WBC) Count 23.7 thou/uL (4.8-10.8)
[2022-07-20] MEDS: Penicillin G Potassium 4 MILL.UNITS in Sodium Chloride 0.9% 100 ML IVPB SCH (22:54)
[2022-07-20 22:57] LABS: Band 29 % (5-11); Lymphocytes 1 % (21-51); MDiff Complete? YES; Monocytes 22 % (0-10); Neutrophil 48 % (42-75); Platelet Morphology Comment Appears Decreased; RBC Morphology Normal
[2022-07-20 23:05] LABS: ALT (SGPT) 54 U/L (8-55); AST (SGOT) 63 U/L (5-34); Albumin 2.1 g/dL (3.4-4.8); Alkaline Phosphatase 172 U/L (40-110); Anion Gap 21 mmol/L (10-20); BUN (Urea Nitrogen) 78 mg/dL (9.8-20.1); Bilirubin, Total 2.5 mg/dL (0.2-1.2); Calc. Creatinine Clearance 27 mL/min (70-130); Carbon Dioxide 15 mmol/L (23-31); Chloride 103 mmol/L (98-107); Estimated GFR 23; Globulin 2.8 g/dL (2.4-3.5); Glucose 207 mg/dL (80-115); Potassium 3.3 mmol/L (3.5-5.1); Protein, Total 4.9 g/dL (5.8-8.1); Sodium 136 mmol/L (136-145)
[2022-07-20] MEDS ORDERED: Potassium Chloride 10 MEQ TAB PO SCH (23:30)
[2022-07-20] MEDS ORDERED: Potassium Chloride 10 MEQ in Premix Bag 1 BAG IVPB SCH ×2 (23:59)
[2022-07-21] MEDS: Hydrocortisone Sod Succ/PF 100 mg/2 ml Vial IVP SCH ×4 (01:38→20:37)
[2022-07-21] MEDS: NOREPINEPHRINE 8 MG/250 ML-D5W 250 ML IVPB SCH ×5 (02:45→23:20)
[2022-07-21 04:59] LABS: ALT (SGPT) 55 U/L (8-55); AST (SGOT) 66 U/L (5-34); Alkaline Phosphatase 326 U/L (40-110); Anion Gap 22 mmol/L (10-20); BUN (Urea Nitrogen) 80 mg/dL (9.8-20.1); Bilirubin, Total 2.8 mg/dL (0.2-1.2); Calc. Creatinine Clearance 26 mL/min (70-130); Calcium 7.8 mg/dL (7.8-10.44); Carbon Dioxide 14 mmol/L (23-31); Chloride 102 mmol/L (98-107); Estimated GFR 22; Globulin 2.8 g/dL (2.4-3.5); Glucose 285 mg/dL (80-115); Magnesium 2.4 mg/dL (1.6-2.6); Potassium 3.4 mmol/L (3.5-5.1); Protein, Total 4.8 g/dL (5.8-8.1); Sodium 135 mmol/L (136-145)
[2022-07-21 05:27] LABS: Band 44 % (5-11); Hemoglobin 10.6 g/dL (12.0-16.0); Hypochromia SLIGHT = 6-15 cells (100X) (0-5/hpf); Lymphocytes 9 % (21-51); MDiff Complete? YES; Mean Corpuscular HGB CONC 32.7 g/dL (32.0-36.0); Mean Corpuscular Hemoglobin 30.5 pg (27.0-31.0); Mean Corpuscular Volume 93.2 fL (78.0-98.0); Monocytes 3 % (0-10); Neutrophil 44 % (42-75); Platelet Count 51 thou/uL (130-400); Platelet Morphology Comment Appears Decreased; RBC Distribution Width 12.8 % (11.5-14.5); Red Blood Cell (RBC) Count 3.47 mill/uL (4.20-5.40); White Blood Cell (WBC) Count 33.7 thou/uL (4.8-10.8)
[2022-07-21] MEDS: Clindamycin/D5W 900 MG in Premix Bag 1 BAG IVPB SCH ×3 (05:56→21:32)
[2022-07-21] MEDS: HumaLOG 300 UNITS/3 ML VIAL SC PRN ×2 (06:02→12:00)
[2022-07-21] MEDS: Penicillin G Potassium 4 MILL.UNITS in Sodium Chloride 0.9% 100 ML IVPB SCH ×3 (06:22→22:50)
[2022-07-21] MEDS: Furosemide 40 MG/4 ML VIAL SLOW IVP SCH (08:35)
[2022-07-21] MEDS: Pantoprazole 40 MG VIAL IVP SCH (08:37)
[2022-07-21] MEDS: Sodium Bicarbonate 140 MEQ in Dextrose 5% in Water 1,000 ML IV SCH (11:53)
[2022-07-21] MEDS: Morphine 2 MG/ML VIAL SLOW IVP PRN (13:06)
[2022-07-21] MEDS ORDERED: Dextrose 5% in Water 1,000 ML IV PRN (13:57)
[2022-07-21] MEDS: NPH, Human Insulin Isophane 300 UNIT/3 ML VIAL SC SCH (14:26)
[2022-07-21 17:24] LABS: Glucose 357 mg/dL (80-115)
[2022-07-21] MEDS: Potassium Chloride 20 MEQ in Premix Bag 1 BAG IVPB SCH ×2 (17:42→20:35)
[2022-07-21] MEDS: Insulin Regular 300 UNITS/3 ML VIAL SC PRN ×2 (18:06→21:33)
[2022-07-21 21:11] LABS: Glucose 364 mg/dL (80-115)
[2022-07-21] MEDS ORDERED: Albumin 25% 100 ML ONE (22:43)
[2022-07-21] MEDS ORDERED: EPINEPHrine 4 MG in Dextrose 5% in Water 250 ML IV SCH (23:00)
[2022-07-21] MEDS ORDERED: Albumin 25% 25 GM/100 ML BOT IVPB SCH (23:00)
[2022-07-22 01:23] LABS: Glucose 376 mg/dL (80-115)
[2022-07-22] MEDS: Hydrocortisone Sod Succ/PF 100 mg/2 ml Vial IVP SCH ×3 (01:41→20:35)
[2022-07-22] MEDS: Sodium Bicarbonate 140 MEQ in Dextrose 5% in Water 1,000 ML IV SCH ×2 (01:41→15:22)
[2022-07-22] MEDS: NPH, Human Insulin Isophane 300 UNIT/3 ML VIAL SC SCH ×3 (01:42→20:32)
[2022-07-22] MEDS: Insulin Regular 300 UNITS/3 ML VIAL SC PRN ×4 (01:43→16:08)
[2022-07-22] MEDS: NOREPINEPHRINE 8 MG/250 ML-D5W 250 ML IVPB SCH ×2 (03:45→08:24)
[2022-07-22] MEDS: Penicillin G Potassium 4 MILL.UNITS in Sodium Chloride 0.9% 100 ML IVPB SCH ×3 (05:07→22:50)
[2022-07-22 05:09] LABS: ALT (SGPT) 39 U/L (8-55); AST (SGOT) 42 U/L (5-34); Albumin 2.2 g/dL (3.4-4.8); Alkaline Phosphatase 213 U/L (40-110); Anion Gap 18 mmol/L (10-20); BUN (Urea Nitrogen) 88 mg/dL (9.8-20.1); Bilirubin, Total 3.7 mg/dL (0.2-1.2); Calc. Creatinine Clearance 27 mL/min (70-130); Calcium 7.3 mg/dL (7.8-10.44); Carbon Dioxide 22 mmol/L (23-31); Chloride 97 mmol/L (98-107); Estimated GFR 22; Globulin 2.8 g/dL (2.4-3.5); Glucose 356 mg/dL (80-115); Magnesium 2.2 mg/dL (1.6-2.6); Potassium 3.1 mmol/L (3.5-5.1); Sodium 134 mmol/L (136-145)
[2022-07-22 05:30] LABS: Hemoglobin 9.7 g/dL (12.0-16.0); Mean Corpuscular HGB CONC 33.2 g/dL (32.0-36.0); Mean Corpuscular Hemoglobin 30.7 pg (27.0-31.0); Mean Corpuscular Volume 92.4 fL (78.0-98.0); Mean Platelet Volume 11.3 fL (7.4-10.4); Platelet Count 30 thou/uL (130-400); RBC Distribution Width 12.7 % (11.5-14.5); Red Blood Cell (RBC) Count 3.15 mill/uL (4.20-5.40); White Blood Cell (WBC) Count 31.5 thou/uL (4.8-10.8)
[2022-07-22 05:44] LABS: Band 15 % (5-11); Lymphocytes 8 % (21-51); MDiff Complete? YES; Metamyelocyte 6 % (0-0); Monocytes 1 % (0-10); Neutrophil 70 % (42-75); Platelet Morphology Comment Appears Adequate; RBC Morphology Normal
[2022-07-22] MEDS: Clindamycin/D5W 900 MG in Premix Bag 1 BAG IVPB SCH ×3 (05:47→22:21)
[2022-07-22] MEDS ORDERED: Albumin 25% 25 GM/100 ML BOT IVPB SCH (07:45)
[2022-07-22] MEDS ORDERED: Potassium Chloride 40 MEQ in Premix Bag 1 BAG IVPB SCH ×2 (07:45→14:45)
[2022-07-22] MEDS: Pantoprazole 40 MG VIAL IVP SCH (08:23)
[2022-07-22 09:05] LABS: Glucose 312 mg/dL (80-115)
[2022-07-22 13:19] LABS: Glucose 252 mg/dL (80-115)
[2022-07-22] MEDS: Morphine 2 MG/ML VIAL SLOW IVP PRN (13:32)
[2022-07-22 13:40] LABS: Potassium 3.2 mmol/L (3.5-5.1)
[2022-07-22] MEDS ORDERED: Ondansetron PF 4 MG/2 ML Vial IVP PRN (20:13)
[2022-07-23] MEDS: Morphine 2 MG/ML VIAL SLOW IVP PRN (02:05)
[2022-07-23 04:29] LABS: Glucose 85 mg/dL (80-115)
[2022-07-23 04:31] LABS: ALT (SGPT) 32 U/L (8-55); AST (SGOT) 39 U/L (5-34); Albumin 2.3 g/dL (3.4-4.8); Alkaline Phosphatase 235 U/L (40-110); Anion Gap 17 mmol/L (10-20); BUN (Urea Nitrogen) 82 mg/dL (9.8-20.1); Bilirubin, Total 4.2 mg/dL (0.2-1.2); Calc. Creatinine Clearance 35 mL/min (70-130); Calcium 7.7 mg/dL (7.8-10.44); Carbon Dioxide 27 mmol/L (23-31); Chloride 98 mmol/L (98-107); Estimated GFR 30; Globulin 2.8 g/dL (2.4-3.5); Magnesium 2.3 mg/dL (1.6-2.6); Potassium 3.3 mmol/L (3.5-5.1); Protein, Total 5.1 g/dL (5.8-8.1); Sodium 139 mmol/L (136-145)
[2022-07-23] MEDS: Clindamycin/D5W 900 MG in Premix Bag 1 BAG IVPB SCH ×3 (05:17→21:33)
[2022-07-23] MEDS: Penicillin G Potassium 4 MILL.UNITS in Sodium Chloride 0.9% 100 ML IVPB SCH ×3 (05:30→20:52)
[2022-07-23 06:41] LABS: Hemoglobin 9.2 g/dL (12.0-16.0); Mean Corpuscular HGB CONC 33.7 g/dL (32.0-36.0); Mean Corpuscular Hemoglobin 30.7 pg (27.0-31.0); Mean Corpuscular Volume 91.1 fL (78.0-98.0); Mean Platelet Volume 12.1 fL (7.4-10.4); Platelet Count 24 thou/uL (130-400); RBC Distribution Width 12.7 % (11.5-14.5); White Blood Cell (WBC) Count 25.3 thou/uL (4.8-10.8)
[2022-07-23 06:46] LABS: Band 22 % (5-11); Lymphocytes 5 % (21-51); MDiff Complete? YES; Monocytes 3 % (0-10); Neutrophil 70 % (42-75); Platelet Morphology Comment Appears Decreased
[2022-07-23] MEDS: Pantoprazole 40 MG VIAL IVP SCH (07:16)
[2022-07-23] MEDS: Hydrocortisone Sod Succ/PF 100 mg/2 ml Vial IVP SCH ×2 (07:16→20:54)
[2022-07-23] MEDS: NPH, Human Insulin Isophane 300 UNIT/3 ML VIAL SC SCH ×2 (07:16→20:10)
[2022-07-23] MEDS: Sodium Bicarbonate 140 MEQ in Dextrose 5% in Water 1,000 ML IV SCH (07:17)
[2022-07-23] MEDS ORDERED: Dextrose 50% Abboject 50 ML SYRINGE SLOW IVP PRN (09:50)
[2022-07-23] MEDS ORDERED: Dextrose 5% in Water 1,000 ML IV PRN (09:50)
[2022-07-23] MEDS ORDERED: Sodium Chloride 0.45% 1,000 ML IV SCH (10:00)
[2022-07-23] MEDS ORDERED: Potassium Chloride 40 MEQ in Premix Bag 1 BAG IVPB SCH (10:00)
[2022-07-23] MEDS: Dextrose 5 %-0.45 % NaCl 1,000 ML IV SCH (22:45)
[2022-07-24] MEDS: Penicillin G Potassium 4 MILL.UNITS in Sodium Chloride 0.9% 100 ML IVPB SCH ×4 (02:34→21:02)
[2022-07-24 04:35] LABS: Hemoglobin 9.6 g/dL (12.0-16.0); Mean Corpuscular HGB CONC 32.8 g/dL (32.0-36.0); Mean Corpuscular Hemoglobin 30.7 pg (27.0-31.0); Mean Corpuscular Volume 93.6 fL (78.0-98.0); Mean Platelet Volume 12.2 fL (7.4-10.4); Platelet Count 27 thou/uL (130-400); RBC Distribution Width 12.8 % (11.5-14.5); Red Blood Cell (RBC) Count 3.13 mill/uL (4.20-5.40); White Blood Cell (WBC) Count 22.9 thou/uL (4.8-10.8)
[2022-07-24 04:38] LABS: ALT (SGPT) 41 U/L (8-55); AST (SGOT) 65 U/L (5-34); Alkaline Phosphatase 321 U/L (40-110); Anion Gap 14 mmol/L (10-20); BUN (Urea Nitrogen) 79 mg/dL (9.8-20.1); Bilirubin, Total 3.6 mg/dL (0.2-1.2); Calc. Creatinine Clearance 39 mL/min (70-130); Calcium 7.5 mg/dL (7.8-10.44); Carbon Dioxide 30 mmol/L (23-31); Chloride 100 mmol/L (98-107); Estimated GFR 34; Globulin 3.1 g/dL (2.4-3.5); Glucose 112 mg/dL (80-115); Potassium 3.7 mmol/L (3.5-5.1); Protein, Total 5.1 g/dL (5.8-8.1); Sodium 140 mmol/L (136-145)
[2022-07-24 05:27] LABS: Band 16 % (5-11); Lymphocytes 6 % (21-51); MDiff Complete? YES; Monocytes 1 % (0-10); Myelocyte 1 % (0-0); Neutrophil 76 % (42-75); Platelet Morphology Comment Appears Decreased
[2022-07-24] MEDS: Clindamycin/D5W 900 MG in Premix Bag 1 BAG IVPB SCH ×3 (07:11→22:47)
[2022-07-24] MEDS: Hydrocortisone Sod Succ/PF 100 mg/2 ml Vial IVP SCH ×2 (08:55→20:26)
[2022-07-24] MEDS: Pantoprazole 40 MG VIAL IVP SCH (08:55)
[2022-07-24] MEDS: NPH, Human Insulin Isophane 300 UNIT/3 ML VIAL SC SCH (09:16)
[2022-07-24] MEDS ORDERED: Cepastat Lozenges 1 LOZ PO PRN (12:40)
[2022-07-24] MEDS: Morphine 2 MG/ML VIAL SLOW IVP PRN ×3 (13:08→23:31)
[2022-07-24] MEDS: Dextrose 5 %-0.45 % NaCl 1,000 ML IV SCH (13:19)
[2022-07-24] MEDS: Silver Sulfadiazine 50 GM TUBE TOP SCH (20:26)
[2022-07-25] MEDS: Insulin Regular 300 UNITS/3 ML VIAL SC PRN ×2 (01:19→06:38)
[2022-07-25] MEDS: Penicillin G Potassium 4 MILL.UNITS in Sodium Chloride 0.9% 100 ML IVPB SCH ×4 (02:58→19:50)
[2022-07-25] MEDS: Dextrose 5 %-0.45 % NaCl 1,000 ML IV SCH ×2 (02:59→14:54)
[2022-07-25 04:54] LABS: Band 15 % (5-11); Hemoglobin 9.1 g/dL (12.0-16.0); Large Platelets SLIGHT; Lymphocytes 3 % (21-51); MDiff Complete? YES; Mean Corpuscular HGB CONC 33.3 g/dL (32.0-36.0); Mean Corpuscular Volume 93.1 fL (78.0-98.0); Metamyelocyte 1 % (0-0); Monocytes 3 % (0-10); Myelocyte 2 % (0-0); Neutrophil 76 % (42-75); Platelet Count 53 thou/uL (130-400); Platelet Morphology Comment Appears Decreased; RBC Distribution Width 12.8 % (11.5-14.5); Red Blood Cell (RBC) Count 2.94 mill/uL (4.20-5.40); White Blood Cell (WBC) Count 21.9 thou/uL (4.8-10.8)
[2022-07-25 05:54] LABS: ALT (SGPT) 39 U/L (8-55); AST (SGOT) 42 U/L (5-34); Albumin 1.9 g/dL (3.4-4.8); Alkaline Phosphatase 372 U/L (40-110); Anion Gap 15 mmol/L (10-20); BUN (Urea Nitrogen) 79 mg/dL (9.8-20.1); Calc. Creatinine Clearance 43 mL/min (70-130); Calcium 7.6 mg/dL (7.8-10.44); Carbon Dioxide 27 mmol/L (23-31); Chloride 99 mmol/L (98-107); Estimated GFR 36; Globulin 3.4 g/dL (2.4-3.5); Glucose 318 mg/dL (80-115); Potassium 3.7 mmol/L (3.5-5.1); Protein, Total 5.3 g/dL (5.8-8.1); Sodium 137 mmol/L (136-145)
[2022-07-25] MEDS: Clindamycin/D5W 900 MG in Premix Bag 1 BAG IVPB SCH ×3 (06:03→21:37)
[2022-07-25] MEDS: traMADol HCl 50 MG TAB PO PRN ×2 (08:44→18:28)
[2022-07-25] MEDS: Morphine 2 MG/ML VIAL SLOW IVP PRN ×4 (08:45→22:13)
[2022-07-25] MEDS: Pantoprazole 40 MG VIAL IVP SCH (09:31)
[2022-07-25] MEDS: Hydrocortisone Sod Succ/PF 100 mg/2 ml Vial IVP SCH ×2 (09:31→21:37)
[2022-07-25] MEDS: Silver Sulfadiazine 50 GM TUBE TOP SCH ×2 (09:36→21:39)
[2022-07-25] MEDS ORDERED: Furosemide 40 MG/4 ML VIAL IVP SCH (14:14)
[2022-07-25] MEDS: Acetaminophen 325 MG TAB PO PRN (22:11)
[2022-07-26] MEDS: traMADol HCl 50 MG TAB PO PRN ×2 (01:58→14:47)
[2022-07-26] MEDS: Penicillin G Potassium 4 MILL.UNITS in Sodium Chloride 0.9% 100 ML IVPB SCH ×4 (02:03→20:53)
[2022-07-26 04:23] LABS: ALT (SGPT) 27 U/L (8-55); AST (SGOT) 22 U/L (5-34); Albumin 1.9 g/dL (3.4-4.8); Alkaline Phosphatase 272 U/L (40-110); Anion Gap 15 mmol/L (10-20); BUN (Urea Nitrogen) 69 mg/dL (9.8-20.1); Bilirubin, Total 1.7 mg/dL (0.2-1.2); Calc. Creatinine Clearance 55 mL/min (70-130); Calcium 7.5 mg/dL (7.8-10.44); Carbon Dioxide 30 mmol/L (23-31); Chloride 98 mmol/L (98-107); Estimated GFR 49; Globulin 3.7 g/dL (2.4-3.5); Glucose 135 mg/dL (80-115); Potassium 3.6 mmol/L (3.5-5.1); Protein, Total 5.6 g/dL (5.8-8.1); Sodium 139 mmol/L (136-145)
[2022-07-26] MEDS: Dextrose 5 %-0.45 % NaCl 1,000 ML IV SCH ×2 (04:46→18:25)
[2022-07-26] MEDS: Clindamycin/D5W 900 MG in Premix Bag 1 BAG IVPB SCH ×3 (06:33→21:57)
[2022-07-26] MEDS: Hydrocortisone Sod Succ/PF 100 mg/2 ml Vial IVP SCH ×2 (08:58→20:54)
[2022-07-26 08:59] LABS: Band 22 % (5-11); Hemoglobin 9.2 g/dL (12.0-16.0); Lymphocytes 6 % (21-51); MDiff Complete? YES; Mean Corpuscular HGB CONC 32.5 g/dL (32.0-36.0); Mean Corpuscular Hemoglobin 30.4 pg (27.0-31.0); Mean Corpuscular Volume 93.6 fL (78.0-98.0); Mean Platelet Volume 10.8 fL (7.4-10.4); Metamyelocyte 2 % (0-0); Monocytes 2 % (0-10); Neutrophil 68 % (42-75); Platelet Count 112 thou/uL (130-400); Platelet Morphology Comment Appears Decreased; Red Blood Cell (RBC) Count 3.02 mill/uL (4.20-5.40); Target Cells SLIGHT = 2-5 cells (100X) (0-1/hpf); White Blood Cell (WBC) Count 20.3 thou/uL (4.8-10.8)
[2022-07-26] MEDS: Pantoprazole 40 MG VIAL IVP SCH (09:03)
[2022-07-26] MEDS: Morphine 2 MG/ML VIAL SLOW IVP PRN ×2 (09:35→19:30)
[2022-07-26] MEDS: Silver Sulfadiazine 50 GM TUBE TOP SCH ×3 (09:35→21:00)
[2022-07-26] MEDS ORDERED: Morphine 4 MG/ML VIAL SLOW IVP PRN (10:05)
[2022-07-26] MEDS ORDERED: Polyethylene Glycol 3350 17 GM Packet PO SCH ×2 (14:15→18:00)
[2022-07-26] MEDS: Insulin Regular 300 UNITS/3 ML VIAL SC PRN (18:29)
[2022-07-27] MEDS: Penicillin G Potassium 4 MILL.UNITS in Sodium Chloride 0.9% 100 ML IVPB SCH ×4 (02:22→20:05)
[2022-07-27] MEDS: traMADol HCl 50 MG TAB PO PRN (02:23)
[2022-07-27] MEDS ORDERED: hydrALAZINE 20 MG/ML VIAL SLOW IVP PRN (03:26)
[2022-07-27] MEDS: Morphine 2 MG/ML VIAL SLOW IVP PRN (05:03)
[2022-07-27] MEDS: Clindamycin/D5W 900 MG in Premix Bag 1 BAG IVPB SCH ×3 (05:04→21:39)
[2022-07-27 05:39] LABS: ALT (SGPT) 24 U/L (8-55); AST (SGOT) 18 U/L (5-34); Albumin 1.9 g/dL (3.4-4.8); Alkaline Phosphatase 236 U/L (40-110); Anion Gap 16 mmol/L (10-20); BUN (Urea Nitrogen) 53 mg/dL (9.8-20.1); Bilirubin, Total 1.3 mg/dL (0.2-1.2); Calc. Creatinine Clearance 74 mL/min (70-130); Calcium 7.5 mg/dL (7.8-10.44); Carbon Dioxide 29 mmol/L (23-31); Chloride 99 mmol/L (98-107); Estimated GFR 70; Globulin 3.8 g/dL (2.4-3.5); Glucose 142 mg/dL (80-115); Potassium 3.5 mmol/L (3.5-5.1); Protein, Total 5.7 g/dL (5.8-8.1); Sodium 140 mmol/L (136-145)
[2022-07-27] MEDS: Dextrose 5 %-0.45 % NaCl 1,000 ML IV SCH ×2 (08:01→21:43)
[2022-07-27] MEDS: Hydrocortisone Sod Succ/PF 100 mg/2 ml Vial IVP SCH (08:48)
[2022-07-27] MEDS: Silver Sulfadiazine 50 GM TUBE TOP SCH ×2 (08:49→20:43)
[2022-07-27] MEDS: Pantoprazole 40 MG VIAL IVP SCH (08:49)
[2022-07-27] MEDS ORDERED: Polyethylene Glycol 3350 17 GM Packet PO SCH (09:00)
[2022-07-27] MEDS ORDERED: Aluminum & Magnesium Hydroxide 60 ML, Lidocaine 2% Viscous Solution 30 ML, diphenhydrAM... SSW PRN (09:02)
[2022-07-27] MEDS ORDERED: Aluminum & Magnesium Hydroxide 60 ML, diphenhydrAMINE 150 MG, Lidocaine 2% Viscous Solu... SSW PRN (09:30)
[2022-07-27] MEDS: Insulin Regular 300 UNITS/3 ML VIAL SC PRN ×2 (13:01→17:09)
[2022-07-27] MEDS ORDERED: Carvedilol 25 MG TAB PO SCH (17:14)
[2022-07-27] MEDS: Carvedilol 25 MG TAB PO SCH (21:30)
[2022-07-28] MEDS: Insulin Regular 300 UNITS/3 ML VIAL SC PRN (00:11)
[2022-07-28] MEDS: Penicillin G Potassium 4 MILL.UNITS in Sodium Chloride 0.9% 100 ML IVPB SCH ×3 (01:42→19:40)
[2022-07-28] MEDS: Clindamycin/D5W 900 MG in Premix Bag 1 BAG IVPB SCH ×2 (06:50→19:41)
[2022-07-28] MEDS: Carvedilol 25 MG TAB PO SCH ×2 (09:44→20:46)
[2022-07-28] MEDS: Pantoprazole 40 MG VIAL IVP SCH (09:44)
[2022-07-28] MEDS: Silver Sulfadiazine 50 GM TUBE TOP SCH (09:45)
[2022-07-28] MEDS: Dextrose 5 %-0.45 % NaCl 1,000 ML IV SCH (10:10)
[2022-07-28] MEDS: traMADol HCl 50 MG TAB PO PRN (11:03)
[2022-07-28] MEDS: cefTRIAXone\\ROCEPHIN 2 GM in Sodium Chloride 0.9% 100 ML IVPB SCH (15:30)
[2022-07-28] MEDS: Aluminum & Magnesium Hydroxide 60 ML, diphenhydrAMINE 150 MG, Lidocaine 2% Viscous Solu... SSW SCH ×2 (16:58→20:45)
[2022-07-29 07:00] LABS: #Eosinphils 0.1 thou/uL (0.0-0.7); #Monocytes 0.6 thou/uL (0.11-0.59); #Neutrophils 12.2 thou/uL (1.40-6.50); %Basophils 0.2 % (0.0-1.0); %Eosinophils 0.6 % (0.0-10.0); %Lymphocytes 7.1 % (21.0-51.0); %Monocytes 4.4 % (0.0-10.0); %Neutrophils 87.7 % (42.0-75.0); Hemoglobin 9.4 g/dL (12.0-16.0); Mean Corpuscular HGB CONC 32.2 g/dL (32.0-36.0); Mean Corpuscular Hemoglobin 30.6 pg (27.0-31.0); Mean Corpuscular Volume 94.9 fL (78.0-98.0); Mean Platelet Volume 9.5 fL (7.4-10.4); Platelet Count 225 thou/uL (130-400); RBC Distribution Width 12.9 % (11.5-14.5); Red Blood Cell (RBC) Count 3.07 mill/uL (4.20-5.40); White Blood Cell (WBC) Count 13.9 thou/uL (4.8-10.8)
[2022-07-29 07:34] LABS: ALT (SGPT) 21 U/L (8-55); AST (SGOT) 21 U/L (5-34); Alkaline Phosphatase 190 U/L (40-110); Anion Gap 12 mmol/L (10-20); BUN (Urea Nitrogen) 26 mg/dL (9.8-20.1); Calc. Creatinine Clearance 89 mL/min (70-130); Calcium 7.6 mg/dL (7.8-10.44); Carbon Dioxide 32 mmol/L (23-31); Chloride 99 mmol/L (98-107); Estimated GFR 88; Globulin 3.7 g/dL (2.4-3.5); Glucose 160 mg/dL (80-115); Potassium 3.4 mmol/L (3.5-5.1); Protein, Total 5.7 g/dL (5.8-8.1); Sodium 140 mmol/L (136-145)
[2022-07-29] MEDS: Carvedilol 25 MG TAB PO SCH ×2 (08:29→21:02)
[2022-07-29] MEDS: Pantoprazole 40 MG VIAL IVP SCH (08:31)
[2022-07-29] MEDS: Collagenase 250 UNITS/GM Ointment 30 GM TUBE TOP SCH (08:32)
[2022-07-29] MEDS: Aluminum & Magnesium Hydroxide 60 ML, diphenhydrAMINE 150 MG, Lidocaine 2% Viscous Solu... SSW SCH ×4 (08:57→21:02)
[2022-07-29] MEDS ORDERED: Non-Formulary Item 1 EACH (Lisinopril [Lisinopril] 40 MG Tablet) PO SCH (09:00)
[2022-07-29] MEDS ORDERED: Potassium Chloride 20 MEQ TAB PO SCH (09:00)
[2022-07-29] MEDS: Albumin 25% 25 GM/100 ML BOT IVPB SCH ×3 (10:01→21:06)
[2022-07-29] MEDS: traMADol HCl 50 MG TAB PO PRN (10:02)
[2022-07-29] MEDS: Saccharomyces boulardii 250 MG CAP PO SCH (10:03)
[2022-07-29] MEDS: Aspirin 81 mg Enteric Coated Tablet PO SCH (10:03)
[2022-07-29] MEDS: NIFEdipine XL 60 MG TAB PO SCH (10:03)
[2022-07-29] MEDS: Glimepiride 4 MG TAB PO SCH ×2 (10:03→21:02)
[2022-07-29] MEDS ORDERED: Bumetanide 1 MG/4 ML VIAL IVP SCH (10:30)
[2022-07-29] MEDS: Insulin Regular 300 UNITS/3 ML VIAL SC PRN ×2 (13:00→17:51)
[2022-07-29] MEDS: cefTRIAXone\\ROCEPHIN 2 GM in Sodium Chloride 0.9% 100 ML IVPB SCH (15:16)
[2022-07-29] MEDS: Atorvastatin Calcium 40 MG TAB PO SCH (21:02)
[2022-07-29] MEDS: Insulin Glargine 30 UNITS/0.3 ML VIAL SC SCH (21:02)
[2022-07-30] MEDS: Albumin 25% 25 GM/100 ML BOT IVPB SCH (04:31)
[2022-07-30 06:45] LABS: #Eosinphils 0.1 thou/uL (0.0-0.7); #Lymphocytes 0.7 thou/uL (1.20-3.40); #Monocytes 0.6 thou/uL (0.11-0.59); #Neutrophils 8.4 thou/uL (1.40-6.50); %Basophils 0.2 % (0.0-1.0); %Eosinophils 1.1 % (0.0-10.0); %Lymphocytes 7.2 % (21.0-51.0); %Monocytes 6.3 % (0.0-10.0); %Neutrophils 85.2 % (42.0-75.0); Hemoglobin 7.7 g/dL (12.0-16.0); Mean Corpuscular HGB CONC 32.6 g/dL (32.0-36.0); Mean Corpuscular Hemoglobin 30.6 pg (27.0-31.0); Mean Corpuscular Volume 94.1 fL (78.0-98.0); Mean Platelet Volume 9.1 fL (7.4-10.4); Platelet Count 209 thou/uL (130-400); RBC Distribution Width 12.6 % (11.5-14.5); White Blood Cell (WBC) Count 9.8 thou/uL (4.8-10.8)
[2022-07-30 07:10] LABS: ALT (SGPT) 13 U/L (8-55); AST (SGOT) 15 U/L (5-34); Albumin 3.2 g/dL (3.4-4.8); Alkaline Phosphatase 123 U/L (40-110); Anion Gap 15 mmol/L (10-20); BUN (Urea Nitrogen) 22 mg/dL (9.8-20.1); Bilirubin, Total 1.2 mg/dL (0.2-1.2); Calc. Creatinine Clearance 92 mL/min (70-130); Calcium 8.2 mg/dL (7.8-10.44); Carbon Dioxide 31 mmol/L (23-31); Chloride 101 mmol/L (98-107); Estimated GFR 92; Globulin 2.9 g/dL (2.4-3.5); Glucose 129 mg/dL (80-115); Potassium 3.1 mmol/L (3.5-5.1); Protein, Total 6.1 g/dL (5.8-8.1); Sodium 144 mmol/L (136-145)
[2022-07-30] MEDS ORDERED: Potassium Chloride 20 MEQ TAB PO SCH (08:00)
[2022-07-30] MEDS: Aspirin 81 mg Enteric Coated Tablet PO SCH (08:51)
[2022-07-30] MEDS: NIFEdipine XL 60 MG TAB PO SCH (08:51)
[2022-07-30] MEDS: Saccharomyces boulardii 250 MG CAP PO SCH (08:51)
[2022-07-30] MEDS: Pantoprazole 40 MG VIAL IVP SCH (08:51)
[2022-07-30] MEDS: Carvedilol 25 MG TAB PO SCH ×2 (08:52→20:22)
[2022-07-30] MEDS: Glimepiride 4 MG TAB PO SCH ×2 (08:52→20:22)
[2022-07-30] MEDS: Collagenase 250 UNITS/GM Ointment 30 GM TUBE TOP SCH (08:53)
[2022-07-30] MEDS: Aluminum & Magnesium Hydroxide 60 ML, diphenhydrAMINE 150 MG, Lidocaine 2% Viscous Solu... SSW SCH ×4 (10:14→20:30)
[2022-07-30] MEDS ORDERED: Bumetanide 1 MG/4 ML VIAL IVP SCH (10:15)
[2022-07-30] MEDS: cefTRIAXone\\ROCEPHIN 2 GM in Sodium Chloride 0.9% 100 ML IVPB SCH (15:19)
[2022-07-30] MEDS: Acetaminophen 325 MG TAB PO PRN (16:52)
[2022-07-30] MEDS: Atorvastatin Calcium 40 MG TAB PO SCH (20:22)
[2022-07-30] MEDS: Insulin Glargine 30 UNITS/0.3 ML VIAL SC SCH (20:23)
[2022-07-31] MEDS: Acetaminophen 325 MG TAB PO PRN ×2 (01:49→20:09)
[2022-07-31] MEDS: Aluminum & Magnesium Hydroxide 60 ML, diphenhydrAMINE 150 MG, Lidocaine 2% Viscous Solu... SSW SCH ×4 (06:23→20:07)
[2022-07-31 07:11] LABS: Hemoglobin 8.2 g/dL (12.0-16.0); Mean Corpuscular HGB CONC 32.4 g/dL (32.0-36.0); Mean Corpuscular Hemoglobin 30.7 pg (27.0-31.0); Mean Corpuscular Volume 94.8 fL (78.0-98.0); Mean Platelet Volume 9.1 fL (7.4-10.4); Platelet Count 252 thou/uL (130-400); RBC Distribution Width 12.7 % (11.5-14.5); Red Blood Cell (RBC) Count 2.68 mill/uL (4.20-5.40)
[2022-07-31 07:30] LABS: ALT (SGPT) 16 U/L (8-55); AST (SGOT) 18 U/L (5-34); Albumin 2.8 g/dL (3.4-4.8); Alkaline Phosphatase 152 U/L (40-110); Anion Gap 10 mmol/L (10-20); BUN (Urea Nitrogen) 20 mg/dL (9.8-20.1); Bilirubin, Total 0.9 mg/dL (0.2-1.2); Calc. Creatinine Clearance 91 mL/min (70-130); Carbon Dioxide 33 mmol/L (23-31); Chloride 100 mmol/L (98-107); Estimated GFR 90; Globulin 3.2 g/dL (2.4-3.5); Glucose 105 mg/dL (80-115); Potassium 3.3 mmol/L (3.5-5.1); Sodium 140 mmol/L (136-145)
[2022-07-31] MEDS ORDERED: Potassium Chloride 20 MEQ TAB PO SCH (08:00)
[2022-07-31] MEDS: Saccharomyces boulardii 250 MG CAP PO SCH (08:32)
[2022-07-31] MEDS: NIFEdipine XL 60 MG TAB PO SCH (08:32)
[2022-07-31] MEDS: Glimepiride 4 MG TAB PO SCH ×2 (08:32→20:08)
[2022-07-31] MEDS: Collagenase 250 UNITS/GM Ointment 30 GM TUBE TOP SCH (08:33)
[2022-07-31] MEDS: Aspirin 81 mg Enteric Coated Tablet PO SCH (08:33)
[2022-07-31] MEDS: Carvedilol 25 MG TAB PO SCH ×2 (08:33→20:08)
[2022-07-31 09:07] LABS: Band 17 % (5-11); Lymphocytes 6 % (21-51); MDiff Complete? YES; Monocytes 6 % (0-10); Neutrophil 71 % (42-75); Platelet Morphology Comment Appears Adequate; Polychromasia SLIGHT = 2-3 cells (100X) (0-2/hpf)
[2022-07-31] MEDS: SODIUM CHLORIDE 0.9% IVPB SCH ×2 (13:21→20:06)
[2022-07-31] MEDS: ACYCLOVIR SODIUM IVPB SCH ×2 (13:21→20:06)
[2022-07-31] MEDS: cefTRIAXone\\ROCEPHIN 2 GM in Sodium Chloride 0.9% 100 ML IVPB SCH (14:32)
[2022-07-31] MEDS: traMADol HCl 50 MG TAB PO PRN ×2 (14:32→20:08)
[2022-07-31] MEDS ORDERED: Bumetanide 1 MG/4 ML VIAL IVP SCH (17:30)
[2022-07-31] MEDS: Insulin Glargine 30 UNITS/0.3 ML VIAL SC SCH (20:07)
[2022-07-31] MEDS: Atorvastatin Calcium 40 MG TAB PO SCH (20:08)
[2022-08-01] MEDS: traMADol HCl 50 MG TAB PO PRN ×2 (02:39→14:38)
[2022-08-01] MEDS: SODIUM CHLORIDE 0.9% IVPB SCH ×3 (05:48→20:07)
[2022-08-01] MEDS: Aluminum & Magnesium Hydroxide 60 ML, diphenhydrAMINE 150 MG, Lidocaine 2% Viscous Solu... SSW SCH ×4 (05:48→20:08)
[2022-08-01] MEDS: ACYCLOVIR SODIUM IVPB SCH ×3 (05:48→20:07)
[2022-08-01 06:38] LABS: #Basophils 0.1 thou/uL (0.0-0.2); #Eosinphils 0.1 thou/uL (0.0-0.7); #Lymphocytes 0.9 thou/uL (1.20-3.40); #Monocytes 0.9 thou/uL (0.11-0.59); %Basophils 0.5 % (0.0-1.0); %Eosinophils 1.1 % (0.0-10.0); %Lymphocytes 7.6 % (21.0-51.0); %Monocytes 7.3 % (0.0-10.0); %Neutrophils 83.5 % (42.0-75.0); Hemoglobin 8.1 g/dL (12.0-16.0); Mean Corpuscular HGB CONC 31.6 g/dL (32.0-36.0); Mean Corpuscular Hemoglobin 29.9 pg (27.0-31.0); Mean Corpuscular Volume 94.6 fL (78.0-98.0); Mean Platelet Volume 8.4 fL (7.4-10.4); Platelet Count 293 thou/uL (130-400); RBC Distribution Width 12.6 % (11.5-14.5); Red Blood Cell (RBC) Count 2.71 mill/uL (4.20-5.40)
[2022-08-01 07:01] LABS: ALT (SGPT) 15 U/L (8-55); AST (SGOT) 17 U/L (5-34); Albumin 2.5 g/dL (3.4-4.8); Alkaline Phosphatase 139 U/L (40-110); Anion Gap 12 mmol/L (10-20); BUN (Urea Nitrogen) 19 mg/dL (9.8-20.1); Bilirubin, Total 0.7 mg/dL (0.2-1.2); Calc. Creatinine Clearance 87 mL/min (70-130); Calcium 7.9 mg/dL (7.8-10.44); Carbon Dioxide 32 mmol/L (23-31); Chloride 102 mmol/L (98-107); Estimated GFR 86; Globulin 3.4 g/dL (2.4-3.5); Glucose 105 mg/dL (80-115); Potassium 3.5 mmol/L (3.5-5.1); Protein, Total 5.9 g/dL (5.8-8.1); Sodium 142 mmol/L (136-145)
[2022-08-01] MEDS: Aspirin 81 mg Enteric Coated Tablet PO SCH (10:02)
[2022-08-01] MEDS: Saccharomyces boulardii 250 MG CAP PO SCH (10:02)
[2022-08-01] MEDS: NIFEdipine XL 60 MG TAB PO SCH (10:02)
[2022-08-01] MEDS: Carvedilol 25 MG TAB PO SCH ×2 (10:03→20:05)
[2022-08-01] MEDS: Glimepiride 4 MG TAB PO SCH ×3 (10:03→20:07)
[2022-08-01] MEDS: Collagenase 250 UNITS/GM Ointment 30 GM TUBE TOP SCH (10:10)
[2022-08-01] MEDS: cefTRIAXone\\ROCEPHIN 2 GM in Sodium Chloride 0.9% 100 ML IVPB SCH (14:32)
[2022-08-01] MEDS: Atorvastatin Calcium 40 MG TAB PO SCH (20:06)
[2022-08-01] MEDS: Insulin Glargine 30 UNITS/0.3 ML VIAL SC SCH (20:07)
[2022-08-01] MEDS: Sodium Chloride 0.65% Nasal 44 ML BOT EA NARE SCH (21:41)
[2022-08-02] MEDS: ACYCLOVIR SODIUM IVPB SCH ×3 (04:41→21:23)
[2022-08-02] MEDS: SODIUM CHLORIDE 0.9% IVPB SCH ×3 (04:41→21:23)
[2022-08-02] MEDS: Carvedilol 25 MG TAB PO SCH ×2 (09:09→21:23)
[2022-08-02] MEDS: Aluminum & Magnesium Hydroxide 60 ML, diphenhydrAMINE 150 MG, Lidocaine 2% Viscous Solu... SSW SCH ×4 (09:09→21:24)
[2022-08-02] MEDS: Saccharomyces boulardii 250 MG CAP PO SCH (09:09)
[2022-08-02] MEDS: Aspirin 81 mg Enteric Coated Tablet PO SCH (09:11)
[2022-08-02] MEDS: Glimepiride 4 MG TAB PO SCH ×2 (09:11→21:23)
[2022-08-02] MEDS: NIFEdipine XL 60 MG TAB PO SCH (09:11)
[2022-08-02] MEDS: Collagenase 250 UNITS/GM Ointment 30 GM TUBE TOP SCH (09:59)
[2022-08-02] MEDS: cefTRIAXone\\ROCEPHIN 2 GM in Sodium Chloride 0.9% 100 ML IVPB SCH (15:12)
[2022-08-02] MEDS: Acetaminophen 325 MG TAB PO PRN (21:22)
[2022-08-02] MEDS: Atorvastatin Calcium 40 MG TAB PO SCH (21:23)
[2022-08-02] MEDS: Insulin Glargine 30 UNITS/0.3 ML VIAL SC SCH (23:41)
[2022-08-03] MEDS: SODIUM CHLORIDE 0.9% IVPB SCH ×3 (05:45→21:42)
[2022-08-03] MEDS: ACYCLOVIR SODIUM IVPB SCH ×3 (05:45→21:42)
[2022-08-03] MEDS: Saccharomyces boulardii 250 MG CAP PO SCH (09:00)
[2022-08-03] MEDS: Glimepiride 4 MG TAB PO SCH ×2 (09:00→21:42)
[2022-08-03] MEDS: NIFEdipine XL 60 MG TAB PO SCH (09:00)
[2022-08-03] MEDS: Carvedilol 25 MG TAB PO SCH ×2 (09:01→21:42)
[2022-08-03] MEDS: Sodium Chloride 0.65% Nasal 44 ML BOT EA NARE SCH (09:01)
[2022-08-03] MEDS: Aluminum & Magnesium Hydroxide 60 ML, diphenhydrAMINE 150 MG, Lidocaine 2% Viscous Solu... SSW SCH ×4 (09:01→21:43)
[2022-08-03] MEDS: Aspirin 81 mg Enteric Coated Tablet PO SCH (09:01)
[2022-08-03] MEDS: Collagenase 250 UNITS/GM Ointment 30 GM TUBE TOP SCH (11:30)
[2022-08-03] MEDS: Acetaminophen 325 MG TAB PO PRN (12:17)
[2022-08-03] MEDS ORDERED: Insulin Glargine 30 UNITS/0.3 ML VIAL SC SCH (13:09)
[2022-08-03] MEDS: cefTRIAXone\\ROCEPHIN 2 GM in Sodium Chloride 0.9% 100 ML IVPB SCH (14:44)
[2022-08-03] MEDS: Enoxaparin Sodium 40 MG/0.4 ML SYRINGE SC SCH (21:42)
[2022-08-03] MEDS: Atorvastatin Calcium 40 MG TAB PO SCH (21:42)
[2022-08-04] MEDS: Acetaminophen 325 MG TAB PO PRN (00:38)
[2022-08-04] MEDS: SODIUM CHLORIDE 0.9% IVPB SCH ×3 (06:00→22:00)
[2022-08-04] MEDS: ACYCLOVIR SODIUM IVPB SCH ×3 (06:00→22:00)
[2022-08-04 07:01] LABS: Band 25 % (5-11); Hemoglobin 7.8 g/dL (12.0-16.0); Lymphocytes 14 % (21-51); MDiff Complete? YES; Mean Corpuscular HGB CONC 33.8 g/dL (32.0-36.0); Mean Corpuscular Hemoglobin 31.5 pg (27.0-31.0); Mean Corpuscular Volume 93.2 fL (78.0-98.0); Mean Platelet Volume 8.2 fL (7.4-10.4); Monocytes 7 % (0-10); Neutrophil 51 % (42-75); Platelet Count 295 thou/uL (130-400); RBC Distribution Width 12.3 % (11.5-14.5); Reactive Lymphocytes 2 % (0-10); Red Blood Cell (RBC) Count 2.47 mill/uL (4.20-5.40)
[2022-08-04 07:02] LABS: Eosinophils 1 % (0-10); Platelet Morphology Comment Appears Adequate; Polychromasia SLIGHT = 2-3 cells (100X) (0-2/hpf)
[2022-08-04] MEDS: NIFEdipine XL 60 MG TAB PO SCH (08:38)
[2022-08-04] MEDS: Aspirin 81 mg Enteric Coated Tablet PO SCH (08:39)
[2022-08-04] MEDS: Carvedilol 25 MG TAB PO SCH ×2 (08:39→21:59)
[2022-08-04] MEDS: Glimepiride 4 MG TAB PO SCH ×3 (08:39→22:03)
[2022-08-04] MEDS: Saccharomyces boulardii 250 MG CAP PO SCH (08:39)
[2022-08-04] MEDS: Aluminum & Magnesium Hydroxide 60 ML, diphenhydrAMINE 150 MG, Lidocaine 2% Viscous Solu... SSW SCH ×4 (08:40→22:01)
[2022-08-04] MEDS: Sodium Chloride 0.65% Nasal 44 ML BOT EA NARE SCH (08:40)
[2022-08-04] MEDS: Collagenase 250 UNITS/GM Ointment 30 GM TUBE TOP SCH (08:40)
[2022-08-04] MEDS: cefTRIAXone\\ROCEPHIN 2 GM in Sodium Chloride 0.9% 100 ML IVPB SCH (16:02)
[2022-08-04] MEDS: Dextrose 50% Abboject 50 ML SYRINGE SLOW IVP PRN (16:54)
[2022-08-04] MEDS: Atorvastatin Calcium 40 MG TAB PO SCH (21:59)
[2022-08-04] MEDS: Enoxaparin Sodium 40 MG/0.4 ML SYRINGE SC SCH (22:00)
[2022-08-05] MEDS: Dextrose 50% Abboject 50 ML SYRINGE SLOW IVP PRN (02:30)
[2022-08-05] MEDS: ACYCLOVIR SODIUM IVPB SCH ×3 (05:48→21:15)
[2022-08-05] MEDS: SODIUM CHLORIDE 0.9% IVPB SCH ×3 (05:48→21:15)
[2022-08-05 06:42] LABS: Hemoglobin 7.3 g/dL (12.0-16.0); Mean Corpuscular HGB CONC 32.7 g/dL (32.0-36.0); Mean Corpuscular Hemoglobin 30.3 pg (27.0-31.0); Mean Corpuscular Volume 92.6 fL (78.0-98.0); Platelet Count 269 thou/uL (130-400); RBC Distribution Width 12.3 % (11.5-14.5); Red Blood Cell (RBC) Count 2.42 mill/uL (4.20-5.40); White Blood Cell (WBC) Count 5.8 thou/uL (4.8-10.8)
[2022-08-05 07:41] LABS: Band 20 % (5-11); Eosinophils 1 % (0-10); Lymphocytes 14 % (21-51); MDiff Complete? YES; Monocytes 16 % (0-10); Neutrophil 49 % (42-75); Platelet Morphology Comment Appears Adequate; Polychromasia SLIGHT = 2-3 cells (100X) (0-2/hpf)
[2022-08-05] MEDS: Carvedilol 25 MG TAB PO SCH ×2 (08:33→21:13)
[2022-08-05] MEDS: Aspirin 81 mg Enteric Coated Tablet PO SCH (08:34)
[2022-08-05] MEDS: Glimepiride 4 MG TAB PO SCH ×2 (08:34→21:11)
[2022-08-05] MEDS: NIFEdipine XL 60 MG TAB PO SCH (08:34)
[2022-08-05] MEDS: Saccharomyces boulardii 250 MG CAP PO SCH (08:35)
[2022-08-05] MEDS: Aluminum & Magnesium Hydroxide 60 ML, diphenhydrAMINE 150 MG, Lidocaine 2% Viscous Solu... SSW SCH ×4 (08:35→22:08)
[2022-08-05] MEDS: Sodium Chloride 0.65% Nasal 44 ML BOT EA NARE SCH (08:36)
[2022-08-05] MEDS: Collagenase 250 UNITS/GM Ointment 30 GM TUBE TOP SCH (12:01)
[2022-08-05] MEDS ORDERED: Magnesium Citrate 300 ML BOT PO SCH (13:00)
[2022-08-05] MEDS ORDERED: Senokot S 8.6-50 MG TAB PO SCH (13:00)
[2022-08-05] MEDS: cefTRIAXone\\ROCEPHIN 2 GM in Sodium Chloride 0.9% 100 ML IVPB SCH (14:14)
[2022-08-05] MEDS ORDERED: Polyethylene Glycol 3350 17 GM Packet PO SCH (14:30)
[2022-08-05] MEDS: Senokot S 8.6-50 MG TAB PO SCH (21:12)
[2022-08-05] MEDS: Atorvastatin Calcium 40 MG TAB PO SCH (21:13)
[2022-08-05] MEDS: Enoxaparin Sodium 40 MG/0.4 ML SYRINGE SC SCH (21:14)
[2022-08-05] MEDS ORDERED: traMADol HCl 50 MG TAB PO PRN (21:58)
[2022-08-06] MEDS: ACYCLOVIR SODIUM IVPB SCH (04:34)
[2022-08-06] MEDS: SODIUM CHLORIDE 0.9% IVPB SCH (04:34)
[2022-08-06] MEDS: Polyethylene Glycol 3350 17 GM Packet PO SCH (08:10)
[2022-08-06] MEDS: Carvedilol 25 MG TAB PO SCH ×2 (08:10→21:17)
[2022-08-06] MEDS: Saccharomyces boulardii 250 MG CAP PO SCH (08:12)
[2022-08-06] MEDS: NIFEdipine XL 60 MG TAB PO SCH (08:12)
[2022-08-06] MEDS: Senokot S 8.6-50 MG TAB PO SCH ×2 (08:12→21:17)
[2022-08-06] MEDS: Glimepiride 4 MG TAB PO SCH (08:12)
[2022-08-06] MEDS: Aspirin 81 mg Enteric Coated Tablet PO SCH (08:12)
[2022-08-06] MEDS: Sodium Chloride 0.65% Nasal 44 ML BOT EA NARE SCH (08:13)
[2022-08-06] MEDS: Collagenase 250 UNITS/GM Ointment 30 GM TUBE TOP SCH (08:14)
[2022-08-06] MEDS: Aluminum & Magnesium Hydroxide 60 ML, diphenhydrAMINE 150 MG, Lidocaine 2% Viscous Solu... SSW SCH ×4 (09:48→21:18)
[2022-08-06] MEDS ORDERED: Fluconazole 100 MG TAB PO SCH (10:15)
[2022-08-06] MEDS: cefTRIAXone\\ROCEPHIN 2 GM in Sodium Chloride 0.9% 100 ML IVPB SCH (15:24)
[2022-08-06 16:33] VITALS: BMI 29.8
[2022-08-06] MEDS ORDERED: Glimepiride 4 MG TAB PO SCH (20:00)
[2022-08-06] MEDS: Atorvastatin Calcium 40 MG TAB PO SCH (21:17)
[2022-08-06] MEDS: Enoxaparin Sodium 40 MG/0.4 ML SYRINGE SC SCH (21:20)
[2022-08-06 22:11] LABS: Glucose 92 mg/dL (80-115)
[2022-08-07 04:30] LABS: SARS-CoV-2 NAA Rapid Test Not Detected (NotDetected)
[2022-08-07] MEDS ORDERED: Glimepiride 4 MG TAB PO SCH ×2 (07:30→10:48)
[2022-08-07] MEDS: Aluminum & Magnesium Hydroxide 60 ML, diphenhydrAMINE 150 MG, Lidocaine 2% Viscous Solu... SSW SCH ×4 (10:07→21:35)
[2022-08-07] MEDS: Aspirin 81 mg Enteric Coated Tablet PO SCH (10:09)
[2022-08-07] MEDS: Carvedilol 25 MG TAB PO SCH ×2 (10:10→21:33)
[2022-08-07] MEDS: Fluconazole 100 MG TAB PO SCH (10:11)
[2022-08-07] MEDS: NIFEdipine XL 60 MG TAB PO SCH (10:11)
[2022-08-07] MEDS: Saccharomyces boulardii 250 MG CAP PO SCH (10:11)
[2022-08-07] MEDS: Polyethylene Glycol 3350 17 GM Packet PO SCH (10:12)
[2022-08-07] MEDS: Sodium Chloride 0.65% Nasal 44 ML BOT EA NARE SCH (10:12)
[2022-08-07] MEDS: Collagenase 250 UNITS/GM Ointment 30 GM TUBE TOP SCH (10:12)
[2022-08-07] MEDS: Senokot S 8.6-50 MG TAB PO SCH ×2 (10:12→21:33)
[2022-08-07] MEDS: cefTRIAXone\\ROCEPHIN 2 GM in Sodium Chloride 0.9% 100 ML IVPB SCH (16:20)
[2022-08-07] MEDS: Glimepiride 4 MG TAB PO SCH (16:25)
[2022-08-07] MEDS: Enoxaparin Sodium 40 MG/0.4 ML SYRINGE SC SCH (21:34)
[2022-08-07] MEDS: Atorvastatin Calcium 40 MG TAB PO SCH (21:34)
[2022-08-08 05:35] LABS: #Basophils 0.1 thou/uL (0.0-0.2); #Eosinphils 0.2 thou/uL (0.0-0.7); #Lymphocytes 0.8 thou/uL (1.20-3.40); #Neutrophils 6.1 thou/uL (1.40-6.50); %Basophils 0.7 % (0.0-1.0); %Eosinophils 2.5 % (0.0-10.0); %Lymphocytes 9.6 % (21.0-51.0); %Monocytes 11.9 % (0.0-10.0); %Neutrophils 75.3 % (42.0-75.0); Hemoglobin 8.5 g/dL (12.0-16.0); Mean Corpuscular HGB CONC 31.6 g/dL (32.0-36.0); Mean Corpuscular Hemoglobin 29.6 pg (27.0-31.0); Mean Corpuscular Volume 93.7 fL (78.0-98.0); Mean Platelet Volume 7.5 fL (7.4-10.4); Platelet Count 272 thou/uL (130-400); RBC Distribution Width 12.8 % (11.5-14.5); Red Blood Cell (RBC) Count 2.87 mill/uL (4.20-5.40); White Blood Cell (WBC) Count 8.2 thou/uL (4.8-10.8)
[2022-08-08 08:41] VITALS: BP 136/71; TEMP 98.4
[2022-08-08] MEDS: NIFEdipine XL 60 MG TAB PO SCH (11:39)
[2022-08-08] MEDS: Carvedilol 25 MG TAB PO SCH (11:39)
[2022-08-08] MEDS: Fluconazole 100 MG TAB PO SCH (11:39)
[2022-08-08] MEDS: Polyethylene Glycol 3350 17 GM Packet PO SCH (11:41)
[2022-08-08] MEDS: Senokot S 8.6-50 MG TAB PO SCH (11:41)
[2022-08-08] MEDS: Collagenase 250 UNITS/GM Ointment 30 GM TUBE TOP SCH (11:41)
[2022-08-08] MEDS: Aspirin 81 mg Enteric Coated Tablet PO SCH (11:41)
[2022-08-08] MEDS: Saccharomyces boulardii 250 MG CAP PO SCH (11:41)
[2022-08-08] MEDS: Sodium Chloride 0.65% Nasal 44 ML BOT EA NARE SCH (11:43)
[2022-08-08] MEDS: Glimepiride 4 MG TAB PO SCH (11:43)
[2022-08-08] MEDS: Aluminum & Magnesium Hydroxide 60 ML, diphenhydrAMINE 150 MG, Lidocaine 2% Viscous Solu... SSW SCH (13:48)
== END 2022-08-08 16:50 | DRG 871 ==
LOC: ERS 00:19 → IMCU/EMU 03:56 → CCU 09:19 → T4-B 07-28 13:25
PROVIDERS: ADMIT Hospitalist; ATTEND Hospitalist
PROC: 5A09557 Assistance with Respiratory Ventilation, Greater than 96 Consecutive Hours, Continuous Positive Airway Pressure (ICD-10-PCS; principal; 2022-07-18)
PROC: 3E03329 Introduction of Other Anti-infective into Peripheral Vein, Percutaneous Approach (ICD-10-PCS; 2022-07-18)
PROC: 02HV33Z Insertion of Infusion Device into Superior Vena Cava, Percutaneous Approach (ICD-10-PCS; 2022-07-18)
PROC: B548ZZA Ultrasonography of Superior Vena Cava, Guidance (ICD-10-PCS; 2022-07-18)
PROC: 3E043XZ Introduction of Vasopressor into Central Vein, Percutaneous Approach (ICD-10-PCS; 2022-07-18)
PROC: 03HY32Z Insertion of Monitoring Device into Upper Artery, Percutaneous Approach (ICD-10-PCS; 2022-07-18)
DX: A40.0 Sepsis due to streptococcus, group A (principal); J96.01 Acute respiratory failure with hypoxia; R65.21 Severe sepsis with septic shock; N17.0 Acute kidney failure with tubular necrosis; L03.116 Cellulitis of left lower limb; E87.1 Hypo-osmolality and hyponatremia; N30.00 Acute cystitis without hematuria; B37.0 Candidal stomatitis; E11.52 Type 2 diabetes mellitus with diabetic peripheral angiopathy with gangrene; J98.11 Atelectasis; Z20.822 Contact with and (suspected) exposure to COVID-19; E78.00 Pure hypercholesterolemia, unspecified; I25.10 Atherosclerotic heart disease of native coronary artery without angina pectoris; E87.6 Hypokalemia; E86.0 Dehydration; E11.65 Type 2 diabetes mellitus with hyperglycemia; I12.9 Hypertensive chronic kidney disease with stage 1 through stage 4 chronic kidney disease, or unspecified chronic kidney disease; N18.30 Chronic kidney disease, stage 3 unspecified; E11.22 Type 2 diabetes mellitus with diabetic chronic kidney disease; E88.09 Other disorders of plasma-protein metabolism, not elsewhere classified; R60.0 Localized edema; E87.70 Fluid overload, unspecified; D63.1 Anemia in chronic kidney disease; Z98.890 Other specified postprocedural states; Z95.1 Presence of aortocoronary bypass graft; Z79.52 Long term (current) use of systemic steroids; Z79.82 Long term (current) use of aspirin; Z79.899 Other long term (current) drug therapy; Z91.040 Latex allergy status; Z79.84 Long term (current) use of oral hypoglycemic drugs; D69.59 Other secondary thrombocytopenia; E11.40 Type 2 diabetes mellitus with diabetic neuropathy, unspecified; T38.0X5A Adverse effect of glucocorticoids and synthetic analogues, initial encounter; E11.649 Type 2 diabetes mellitus with hypoglycemia without coma
CPT/HCPCS: 36415; 36416; 36600; 71045; 74176; 80053; 80202; 81001; 82010; 82550; 82805; 82947; 83036; 83605; 83690; 83735; 83880; 84100; 84484; 85025; 85379; 85610; 85730; 86140; 87040; 87077; 87086; 87149; 87186; 93005; 93306; 93923; 94660; 97139; C9113; J0133; J0360; J0692; J0696; J1644; J1650; J1720; J1815; J1940; J1956; J2185; J2270; J2405; J2540; J2543; J3370; J3475; J3480; J3490; J7042; J7050; J7070; J7120; J7999; P9047; Q0163; U0002; U0003; U0005